=== PATIENT | male | born 1945 | race American Indian/Alaskan Native ===

== ENCOUNTER 2019-03-03 07:26 | Day surgery (SDC) | payer MEDICARE, OTHER ==
[~2019-03-03 07:26] MED LIST: ANCEF/STERILE WATER 2 GM/20 ML IV NR
[2019-03-03] MEDS ORDERED: SUBLIMAZE IV PRN (08:10)
[2019-03-03] MEDS ORDERED: ZOFRAN IV PRN (08:10)
--- NOTE | 2019-03-03 08:12 | Anesthesia Day of Surgery ---
Anesthesia Day of Surgery - Day of Surgery Patient Examined: Yes Patient H&P Reviewed: Yes Patient is NPO: Yes
--- NOTE | 2019-03-03 08:14 | Anesthesia Consultation ---
Anesthesia Consult and Med Hx Date of service: 03/03/19 - Airway Anesthetic Teeth Evaluation: Good, Dentures ROM Head & Neck: Adequate Mental/Hyoid Distance: Adequate Mallampati Class: Class II Intubation Access Assessment: Good - Pre-Operative Health Status ASA Pre-Surgery Classification: ASA2 Proposed Anesthetic Plan: General - Pulmonary Hx Smoking: Yes (STOPPED 1974) SOB: No Hx Sleep Apnea: No (MARJORIE PRE SCREEN LOW RISK.) - Cardiovascular System Hx Hypertension: Yes (NO MEDS AT PRESENT) Hx Coronary Artery Disease: No (Neg NST 11/2018; ECHO 2014) Hx Angina: (atypical chestpain, negative exercise stress test 08/2015) - Central Nervous System Hx Neuromuscular Disorder: (arthritis) Hx Back Pain: Yes - Other Systems Hx Cancer: No
[2019-03-03] MEDS ORDERED: SUBLIMAZE ONE (08:43)
[2019-03-03] MEDS ORDERED: XYLOCAINE MPF 2% ONE (08:43)
[2019-03-03] MEDS ORDERED: DIPRIVAN 10 MG/ML IV ONE (08:45)
[2019-03-03] MEDS ORDERED: NEURONTIN PO NR (09:00)
[2019-03-03] MEDS ORDERED: TYLENOL PO NR (09:00)
[2019-03-03] MEDS ORDERED: LACTATED RINGERS 1,000 ML IV SCH (09:00)
[2019-03-03] MEDS ORDERED: ZOFRAN ONE (10:43)
[2019-03-03] MEDS ORDERED: NACL 0.9% IR ONE (10:45)
[2019-03-03] MEDS ORDERED: ROBINUL ONE (10:52)
--- NOTE | 2019-03-03 11:05 | Short Stay Summary ---
Short Stay Documentation Date of service: 03/03/19 Narrative H&P: 73 yr old male with rt hydrocele on ultrasound & exam - History Past Medical History: hyperlipidemia Past Surgical History: hernia repair - Allergies and Medications Current Medications: Allergies No Known Allergies Allergy (Verified 01/28/14 18:34) Home Medications Medication Instructions Recorded Confirmed Last Taken Type Brimonidine/Timolol 0.2-0.5% 1 drops OP Q12H #30 bottle 05/16/16 03/03/19 03/03/19 Rx [Combigan 0.2-0.5%] Latanoprost 0.005% 1 drop OP QHS #30 bottle 05/16/16 03/03/19 03/03/19 Rx Aspirin EC [Aspirin Enteric Coated 81 mg PO QDAY 02/19/19 03/03/19 02/24/19 History TAB] Karina Root 550 mg PO DAILY 02/19/19 03/03/19 02/24/19 History Ibuprofen [Motrin] 800 mg PO Q8HR PRN 02/19/19 03/03/19 02/24/19 History Ranitidine HCl [Zantac] 150 mg PO PRN PRN 02/19/19 03/03/19 03/01/19 History Tamsulosin [Flomax] 0.4 mg PO QDAY 02/19/19 03/03/19 03/02/19 History Turm/Ging/Arun/Yuc/Tashi/Lawrence/Hor 1 each PO DAILY 02/19/19 03/03/19 02/24/19 History [Tumersaid Tablet] Active Medications Acetaminophen (Tylenol) 650 mg PO PREOP NR Stop: 03/03/19 20:00 Last Admin: 03/03/19 09:06 Dose: 325 mg Documented by: Cefazolin Sodium (Ancef/Sterile Water 2 Gm/20 Ml) 2 gm IV PREOP NR Stop: 03/03/19 23:59 Celecoxib (Celebrex) 200 mg PO PREOP NR Stop: 03/03/19 20:00 Last Admin: 03/03/19 09:06 Dose: 200 mg Documented by: Fentanyl (Sublimaze) 50 mcg IV Q5MIN PRN PRN Reason: Pain , Severe (7-10) Stop: 03/03/19 20:00 Gabapentin (Neurontin) 300 mg PO PREOP NR Stop: 03/03/19 20:00 Last Admin: 03/03/19 09:06 Dose: 300 mg Documented by: Lactated Ringer's (Lactated Ringers) 1,000 mls @ 125 mls/hr IV DIRECT JERAMIE Last Admin: 03/03/19 09:05 Dose: 125 mls/hr Documented by: Ondansetron HCl (Zofran) 4 mg IV ONCE PRN PRN Reason: Nausea And Vomiting Stop: 03/03/19 20:00 - Physical exam General appearance: no acute distress, well-nourished Integumentary: no rash, no growths HEENT: Atraumatic, PERRLA, EOMI Lungs: Clear to auscultation, Normal air movement Breasts: normal Heart: Regular rate, No murmurs Gastrointestinal: normal Male Genitourinary: scrotal edema Rectal Exam: deferred Extremities: no ischemia Neurological: Normal gait - Brief post op/procedure progress note Date of procedure: 03/03/19 Pre-op diagnosis: rt hydrocelectomy Post-op diagnosis: other (bilat hydrocele, redundent scrotal skin) Procedure: bilat hydrocelectomy, scrotaplatsty with chi drain Anesthesia: VIRGEN Surgeon: GRACE RANGEL Estimated blood loss: minimal Pathology: list (sac & skin) Specimen disposition: to lab Condition: stable - Hospital course Hospital course: norco & ultram on chart - Disposition Condition at discharge: Stable Disposition: DC-01 TO HOME OR SELFCARE Short Stay Discharge Plan Follow up with: GIGI MEDINA MD [Primary Care Provider] - 7 Days
[2019-03-03] MEDS ORDERED: DILAUDID ONE (11:09)
[2019-03-03] MEDS ORDERED: NORMODYNE IV ONE ×2 (11:22→11:30)
--- NOTE | 2019-03-03 13:34 | Operative Report ---
PREOPERATIVE DIAGNOSIS: Right hydrocele. POSTOPERATIVE DIAGNOSES: Right hydrocele, bilateral hydroceles, redundant scrotal skin. PROCEDURE: Bilateral hydrocelectomy, scrotoplasty with Augusta drain and mummy wrap. SURGEON: Shaheen Kovacs MD ANESTHESIA: General. ESTIMATED BLOOD LOSS: Minimal. FLUIDS: Crystalloid. COMPLICATIONS: No complications. INDICATIONS: This 73-year-old gentleman seen in the office with right scrotal swelling, right greater than left. Ultrasound revealed primarily right hydrocele. Discussed options with the patient, who agreed to proceed with surgical intervention. Risks, benefits, and complications were explained. The patient in the preop area noted that he is having some swelling on the left side as well and we discussed possible exploring both sides. DESCRIPTION OF PROCEDURE: The patient was taken to the operative suite, placed in a supine position. After adequate general anesthesia, he was prepped and draped in a sterile fashion. On exam, the patient did have redundant scrotum, baseball size hydrocele on the right and some fluid on the left. Scrotal skin was marked. A wedge section of the scrotal skin was excised and sent for routine pathologic evaluation. Right hydrocele could be appreciated. A small incision was made. Serosanguineous fluid was extracted from the right side. The sac was excised and sent for routine pathologic evaluation. A whipstitch was used using 2-0 chromic in a running fashion around the remnant tunica vaginalis. Appendix testis was cauterized. Testicle appeared viable. I could see fluid in the left hemiscrotum, made a small incision again and fair amount of serosanguineous fluid could be extracted. Hydrocele sac was removed and again sent for routine pathologic evaluation. Both testicles were viable. 0.5 inch Augusta drain was brought out through a separate stab incision in the scrotum and placed in both compartments. 2-0 chromic running stitch and the dartos layer was performed incorporating the septum into the stitch. The skin was closed with 2-0 chromic in interrupted fashion. The drain was secured with 2-0 chromic in interrupted fashion. Xin was wrapped around the base of the penis and the scrotum to minimize swelling and tape. The patient was extubated and taken to recovery room in stable condition. He will go home on Virax and Unidym. [facility]# [id number] ALEX/KRYS
[2019-03-03 15:24] VITALS: BP 155/86
== END 2019-03-03 13:15 | disposition home or self-care (01) ==
LOC: OR 07:26
PROVIDERS: ATTEND Urology
DX: N43.2 Other hydrocele (principal); N50.89 Other specified disorders of the male genital organs; H40.9 Unspecified glaucoma; I25.118 Atherosclerotic heart disease of native coronary artery with other forms of angina pectoris; E78.00 Pure hypercholesterolemia, unspecified; I10 Essential (primary) hypertension; K21.9 Gastro-esophageal reflux disease without esophagitis; M19.90 Unspecified osteoarthritis, unspecified site; Z79.899 Other long term (current) drug therapy; Z79.82 Long term (current) use of aspirin; Z87.891 Personal history of nicotine dependence; Z87.440 Personal history of urinary (tract) infections; Z98.49 Cataract extraction status, unspecified eye; Z98.890 Other specified postprocedural states
CPT/HCPCS: 55041; 55175; 88302; 88304; A4217; J0690; J1170; J2405; J2704; J3010; J7120; 88305

== ENCOUNTER 2019-03-09 13:04 | Inpatient (IN) | payer MEDICARE, OTHER ==
--- NOTE | 2019-03-09 13:48 | Emergency Department Report ---
Blank Doc - Documentation Documentation: pt presents for right flank pain that began a few day ago pt states he has fluid drained fluid off his testicle on 03/03, Dr. gibson no N/V/D no fever no urinary sx
[2019-03-09 14:35] LABS: Basophils % (Auto) 0.5 % (0.0-1.8); Eosinophils # (Auto) 0.1 K/mm3 (0.0-0.4); Eosinophils % (Auto) 0.8 % (0.0-4.3); Hematocrit 34.7 % (35.5-45.6); Lymphocytes # (Auto) 0.7 K/mm3 (1.2-5.4); Lymphocytes % (Auto) 10.1 % (13.4-35.0); Mean Corpuscular HGB Conc 35 % (32-34); Mean Corpuscular Volume 85 fl (84-94); Monocytes # (Auto) 0.9 K/mm3 (0.0-0.8); Monocytes % (Auto) 12.4 % (0.0-7.3); Platelet Count 206 K/mm3 (140-440); Red Blood Count 4.11 M/mm3 (3.65-5.03); Red Cell Distribution Width 16.5 % (13.2-15.2)
[2019-03-09 14:54] LABS: Bilirubin,Urine NEG (Negative); Blood,Urine MOD (Negative); Color,Urine Yellow (Yellow); Mucus,Urine FEW /HPF; Protein,Urine <15 mg/dL mg/dL (Negative); Urobilinogen,Urine < 2.0 mg/dL (<2.0)
[2019-03-09 14:58] LABS: Albumin 3.4 g/dL (3.9-5); BUN/Creatinine Ratio 6; Blood Urea Nitrogen 73 mg/dL (9-20); Calcium 8.8 mg/dL (8.4-10.2); Hemolysis Index 2
[2019-03-09 15:01] LABS: Alanine Aminotransferase < 5 units/L (7-56)
[2019-03-09] MEDS ORDERED: NACL 0.9% 1000 ML 1,000 ML IV ONE ×2 (16:16→19:52)
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
--- NOTE | 2019-03-09 19:28 | Cat Scan Report ---
PROCEDURE: CT ABDOMEN PELVIS WO CON HISTORY: right flank pain, hydrocele surgery on 03/03, FINDINGS: Unenhanced CT of the abdomen and pelvis was performed. The heart is normal in size. There i s a is lingular linear scar versus atelectasis. ABDOMEN: No suspect focal hepatic lesion is seen. The spleen is normal in size. The adrenal glands and pancrea s are within normal limits. The gallbladder is unremarkable. There is moderate bilateral hydroureteronephrosis. No right-sided stone is seen. There is a stone in the left mid lumbar ureter, axial image 91 sagittal image 77, approximately 0.6 cm. This stone does n ot appear to be obstructing as the left ureter inferior to this stone remains dilated. There are bilateral renal cysts. There is aortic atherosclerotic change without aneurysmal dilation of the aorta. There is no small or large bowel obstruction. Pelvis: There is a normal appendix. There is no evidence of diverticulitis. The prostate is enlarged measuring 4.4 x 6.3 x 6.0 cm for a calculated volume of 86 cc. This is likel y the underlying cause of the patient's bilateral hydroureteronephrosis. The urinary bladder is very distended, likely due to bladder outlet obstruction from prostatic hypertrophy. No fracture is seen in the lumbar spine. There are vacuum degenerative changes at L3-L4 and L4-L5. IMPRESSION: ABDOMEN: Moderate bilateral hydroureteronephrosis 0.6 cm stone in left mid lumbar ureter Pelvis: Enlarged prostate with distended urinary bladder. The prostatic hypertrophy is likely underly ing cause of the patient's bilateral hydroureteronephrosis This document is electronically signed by Greg Smith MD., Mar 09 2019 07:26:32 PM ET
--- NOTE | 2019-03-09 19:36 | Event Note ---
Date of service: 03/09/19 Face to Face: For this encounter I have reviewed the PA/MEDICAL DOCTOR documentation, treatment plan, medical decision making, and I had face to face time with this patient.
--- NOTE | 2019-03-09 20:49 | History and Physical Report ---
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 Severity was 5-7/10. Nonradiating. No known aggravating or relieving factors. Had no nausea or vomiting. Onset was after commencing hydrocodone given or post op pain. pain worsened for which he had to go to the ED at [facility]. Blood chemistry showed a Cr level of 2.8 with BUN of 19. Base line creatinine was 2.1 as of 04/2016. He was discharged with a diagnosis of constipation and placed on stool softners. He followed up with me on the office on 03/06/19 and was given a referral to follow up with his Equipment Engineer. His right sided abdominal pain continue with decreased urine output for which he presented to the ED at [facility] today 03/09/19. Blood chemistry showed a cratinine level of 12.9 and BUN of 73. CT abdomen and pelvis showed jazz hydroureteronephrosis with a enlarged prostate and left mid non obstructing 0.6 cm urteric stone. Patient denies any fever, N/V, chest pain, or shortness of breath. Denies any hematuria. Past History Past Medical History: renal failure, other (GERD, IBS with constipation) Past Surgical History: Other (hydrocelectomy) Social history: denies: smoking, alcohol abuse, prescription drug abuse Family history: no significant family history Medications and Allergies Allergies Allergy/AdvReac Type Severity Reaction Status Date / Time No Known Allergies Allergy Verified 03/09/19 13:49 Home Medications Medication Instructions Recorded Confirmed Last Taken Type Brimonidine/Timolol 0.2-0.5% 1 drops OP Q12H #30 bottle 05/16/16 03/09/19 03/03/19 Rx [Combigan 0.2-0.5%] Latanoprost 0.005% 1 drop OP QHS #30 bottle 05/16/16 03/09/19 03/03/19 Rx Aspirin EC [Aspirin Enteric Coated 81 mg PO QDAY 02/19/19 03/09/1919 History TAB] Karina Root 550 mg PO DAILY 02/19/19 03/09/19 02/24/19 History Ibuprofen [Motrin] 800 mg PO Q8HR PRN 02/19/19 03/03/19 02/24/19 History Ranitidine HCl [Zantac] 150 mg PO PRN PRN 02/19/19 03/09/19 03/01/19 History Tamsulosin [Flomax] 0.4 mg PO QDAY 02/19/19 03/09/19 03/02/19 History Turm/Ging/Arun/Yuc/Tashi/Lawrence/Hor 1 each PO DAILY 02/19/19 03/09/19 02/24/19 History [Tumersaid Tablet] Active Meds: Active Medications Sodium Chloride (Nacl 0.9% 1000 Ml) 1,000 mls @ 999 mls/hr IV BOLUS ONE Stop: 03/09/19 20:52 Review of systems Constitutional: Well Nourished and Well developed. Head: NC/ AT Eyes: Denies any visual impairments. No discharge from the eyes Nose: Denies any rhinorrhea or epistaxis Throats: Denies any post nasal drainage. Ears: Denies any hearing deficits Cardiovascular system: Denies any chest pain, shortness of breath, orthopnea, paroxysmal nocturnal dyspnea, or palpitation. Respiratory system: Denies any cough, difficulty breathing, wheezing, pleuritic chest pain, Gastrointestinal system: Has abdominal pain, no nausea vomiting, hematemesis or melena. Neurological system: Denies any headache, slurred speech, facial droop, lateralizing weakness Genitalia system: Denies any dysuria, urinary frequency or urgency, urethral discharge Skin: No rashes, hyperpigmented spots. Hematological: Denies any cervical tenderness hemorrhages or petechia. Immunological: Denies any multiple septic spots, Lymphatic: Denies any generalized lymphadenopathy. Endocrine: Denies any polyuria, polydipsia, polyphagia. No heat or cold intolerance. Musculoskeletal system: No joint pain or swelling. Psych: No visual, tactile, auditory or hallucination Exam - Physical Exam Narrative exam: Constitutional: Well-nourished well-developed. In no distress Head: Normocephalic atraumatic Eyes: Pupils are equal round and reactive to light Nose: No enlarged turbinates, no septal deviation. Mouth: Moist mucous membranes. Neck: Supple no thyromegaly. No bruit. No JVD Heart: Regular rate and rhythm, S1-S2 normal. No rubs murmurs or gallop Lungs: Clear to auscultation bilaterally. no rales or rhonchi Abdomen: Soft, nontender. Bowel sound are present. Extremities: No edema, no cyanosis, no clubbing. Neuro: Alert oriented Oriented x3. No focal sensory or motor deficit. Skin: No rashes or hyperpigmented spots Musculoskeletal system: No joint pain or swelling Hematological: No petechia or subcutanous hemorrhages. Immunological: No multiple septic spots on the skin AMELIA: Healing scrotal incision with drain in place. Lymphatic: No generalized lymphadenopathy Psychiatry: Euthymic. Calm. - Constitutional Vitals: Temp Pulse Resp BP Pulse Ox 98.2 F 83 18 151/75 98 03/09/19 13:48 03/09/19 13:48 03/09/19 13:48 03/09/19 13:48 03/09/19 13:48 Results - Labs CBC & Chem 7: 03/10/19 06:21 03/09/19 14:00 Labs: Abnormal lab results 03/09/19 03/09/19 03/09/19 Range/Units 14:00 14:00 14:13 Hct 34.7 L (35.5-45.6) % MCHC 35 H (32-34) % RDW 16.5 H (13.2-15.2) % Lymph % (Auto) 10.1 L (13.4-35.0) % [place] % (Auto) 12.4 H (0.0-7.3) % Lymph # 0.7 L (1.2-5.4) K/mm3 [place] # 0.9 H (0.0-0.8) K/mm3 Seg Neutrophils % 76.2 H (40.0-70.0) % Sodium 129 L (137-145) mmol/L Chloride 89.8 L (98-107) mmol/L Carbon Dioxide 20 L (22-30) mmol/L BUN 73 H (9-20) mg/dL Creatinine 12.9 H (0.8-1.5) mg/dL Lactic Acid (0.7-2.0) mmol/L ALT < 5 L (7-56) units/L Albumin 3.4 L (3.9-5) g/dL Lipase 67 H (13-60) units/L Urine WBC (Auto) 8.0 H (0.0-6.0) /HPF 03/09/19 Range/Units 16:30 Hct (35.5-45.6) % MCHC (32-34) % RDW (13.2-15.2) % Lymph % (Auto) (13.4-35.0) % [place] % (Auto) (0.0-7.3) % Lymph # (1.2-5.4) K/mm3 [place] # (0.0-0.8) K/mm3 Seg Neutrophils % (40.0-70.0) % Sodium (137-145) mmol/L Chloride (98-107) mmol/L Carbon Dioxide (22-30) mmol/L BUN (9-20) mg/dL Creatinine (0.8-1.5) mg/dL Lactic Acid 0.60 L (0.7-2.0) mmol/L ALT (7-56) units/L Albumin (3.9-5) g/dL Lipase (13-60) units/L Urine WBC (Auto) (0.0-6.0) /HPF Assessment and Plan Patient is a 73 y/o male who hanson a history of chronic renal failure, BPH, 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 Severity was 5-7/10. Nonradiating. No known aggravating or relieving factors. Had no nausea or vomiting. Onset was after commencing hydrocodone given or post op pain. pain worsened for which he had to go to the ED at [facility]. Blood chemistry showed a Cr level of 2.8 with BUN of 19. Base line creatinine was 2.1 as of 04/2016. He was discharged with a diagnosis of constipation and placed on stool softners. He followed up with me on the office on 03/06/19 and was given a re ferral to follow up with his Equipment Engineer. His right sided abdominal pain continue with decreased urine output for which he presented to the ED at [facility] today 03/09/19. Blood chemistry showed a cratinine level of 12.9 and BUN of 73. CT abdomen and pelvis showed jazz hydroureteronephrosis with a enlarged prostate and left mid non obstructing 0.6 cm urteric stone. Patient denies any fever, N/V, chest pain, or shortness of breath. Denies any hematuria. - Patient Problems (1) Bilateral hydronephrosis Onset Date: ~03/09/19 Current Visit: Yes Status: Acute Plan to address problem: This is most likely secondary to BPH despite being on Flomax We'll place an indwelling Rosado catheter with continuous drainage to a urine bag Obtain a urology consult (2) Left ureteral stone Onset Date: ~03/09/19 Current Visit: Yes Status: Acute Plan to address problem: This is nonobstructing. Urological consult to be obtained (3) Acute on chronic renal failure Onset Date: ~03/09/19 Current Visit: No Status: Acute Plan to address problem: I anticipate an improvement in BUN/creatinine with continuous drainage. We'll consult patient's shift supervisor Brandon BUN/creatinine (4) Bilateral hydrocele Onset Date: ~03/09/19 Current Visit: Yes Status: Acute Plan to address problem: Status post hydrocelectomy on 03/03/2016 (5) UTI (urinary tract infection) Onset Date: ~03/09/19 Current Visit: No Status: Acute Plan to address problem: Obtain urine culture. Commence pt on antibiotic with renal dosing (6) BPH with obstruction/lower urinary tract symptoms Onset Date: ~03/09/19 Current Visit: Yes Status: Acute Plan to address problem: Continue with Flomax. I adjust the dose to 0.8 mg daily Urologist to follow May require TURP I suspicious has had recurrent urinary obstruction (7) DVT prophylaxis Onset Date: ~03/09/19 Current Visit: Yes Status: Acute Plan to address problem: With Lovenox and GI with Pepcid (8) Irritable bowel syndrome with constipation Onset Date: ~01/03/19 Current Visit: Yes Status: Acute
[2019-03-09] MEDS ORDERED: COMBIGAN 0.2-0.5% OS SCH (22:00)
[2019-03-09] MEDS ORDERED: LATANOPROST 0.005% OU SCH (22:00)
[2019-03-10] MEDS: COMBIGAN 0.2-0.5% OS SCH ×3 (00:03→22:43)
[2019-03-10] MEDS: LATANOPROST 0.005% OU SCH ×2 (00:03→22:42)
[2019-03-10 07:35] LABS: Hematocrit 31.7 % (35.5-45.6); Hemoglobin 10.8 gm/dl (11.8-15.2); Mean Corpuscular HGB Conc 34 % (32-34); Mean Corpuscular Volume 83 fl (84-94); Platelet Count 199 K/mm3 (140-440); Red Blood Count 3.83 M/mm3 (3.65-5.03); Red Cell Distribution Width 15.7 % (13.2-15.2)
[2019-03-10 07:52] LABS: Calcium 8.4 mg/dL (8.4-10.2)
--- NOTE | 2019-03-10 07:57 | Progress Note ---
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 Severity was 5-7/10. Nonradia ting. No known aggravating or relieving factors. Had no nausea or vomiting. Onset was after commencing hydrocodone given or post op pain. pain worsened for which he had to go to the ED at [facility]. Blood chemistry showed a Cr level of 2.8 with BUN of 19. Base line creatinine was 2.1 as of 04/2016. He was discharged with a diagnosis of constipation and placed on stool softners. He followed up with me on the office on 03/06/19 and was given a referral to follow up with his [employer]. His right sided abdominal pain continue with decreased urine output for which he presented to the ED at [facility] today 03/09/19. Blood chemistry showed a cratinine level of 12.9 and BUN of 73. CT abdomen and pelvis showed nadeem hydroureteronephrosis with a enlarged prostate and left mid non obstructing 0.6 cm urteric stone. Patient denies any fever, N/V, chest pain, or shortness of breath. Denies any hematuria. - Acute on chronic renal failure Secondry to obstructive uropahty Continue with indewelling Rosado with continous drainage. Avoid nephrotoxic substances Renal dosing of all meds Nephrology consulted - Urinary obstruction from BPH on Foleys catheter continue Flomax - Anemia will work up May be dilutional vs renal trend h/h May hold anticoagulation if persistent - Nadeem hyroureters and hydronephrosis From obstructive uropathy Urologyc consulted - HTN Commence pt on oral antihypertensive - Left ureteric stone measuring 0.6 cm Nonsobstructing Urology following - UTI Follow urine Cx Continue with Rocephin - H/o IBS with Constipation continue with Amitiza - DVT PPx with lovenox and Gi with pepcid - ACP: pt is full code Time spend : 30 mins - Patient Problems (1) Bilateral hydronephrosis Onset Date: ~03/09/19 Current Visit: Yes Status: Acute (2) Left ureteral stone Onset Date: ~03/09/19 Current Visit: Yes Status: Acute (3) Acute on chronic renal failure Onset Date: ~03/09/19 Current Visit: No Status: Acute (4) Bilateral hydrocele Onset Date: ~03/09/19 Current Visit: Yes Status: Acute (5) UTI (urinary tract infection) Onset Date: ~03/09/19 Current Visit: No Status: Acute (6) BPH with obstruction/lower urinary tract symptoms Onset Date: ~03/09/19 Current Visit: Yes Status: Acute (7) DVT prophylaxis Onset Date: ~03/09/19 Current Visit: Yes Status: Acute (8) Irritable bowel syndrome with constipation Onset Date: ~01/03/19 Current Visit: Yes Status: Acute Subjective Date of service: 03/10/19 Principal diagnosis: Acute on chronic renal failure, nadeem hyrnephrosis, UTI Interval history: no new complaints. Denies any fever or chest pain Objective - Exam Narrative Exam: Constitutional: Well-nourished well-developed. In no distress Head: Normocephalic atraumatic Eyes: Pupils are equal round and reactive to light Nose: No enlarged turbinates, no septal deviation. Mouth: Moist mucous membranes. Neck: Supple no thyromegaly. No bruit. No JVD Heart: Regular rate and rhythm, S1-S2 normal. No rubs murmurs or gallop Lungs: Clear to auscultation bilaterally. no rales or rhonchi Abdomen: Soft, nontender. Bowel sound are present. Extremities: No edema, no cyanosis, no clubbing. Neuro: Alert oriented Oriented x3. No focal sensory or motor deficit. Skin: No rashes or hyperpigmented spots Musculoskeletal system: No joint pain or swelling Hematological: No petechia or subcutanous hemorrhages. Immunological: No multiple septic spots on the skin AMELIA: Indwelling Foleys on continuos drainage. Healing scrotal incision with dr mckeon in place. Lymphatic: No generalized lymphadenopathy Psychiatry: Euthymic. Calm. - Constitutional Vitals: Vital Signs - 12hr 03/09/19 03/09/19 03/09/19 20:53 21:49 23:00 Temperature 98.4 F 97.8 F Pulse Rate 90 94 H Respiratory 20 20 20 Rate Blood Pressure 160/78 Blood Pressure 157/65 [Right] O2 Sat by Pulse 99 99 99 Oximetry 03/10/19 03:14 Temperature 98.5 F Pulse Rate 78 Respiratory 20 Rate Blood Pressure 165/75 Blood Pressure [Right] O2 Sat by Pulse 96 Oximetry - Labs CBC & Chem 7: 03/10/19 06:21 03/09/19 14:00 Labs: Abnormal lab results 03/09/19 03/09/19 03/09/19 Range/Units 14:00 14:00 14:13 Hgb (11.8-15.2) gm/dl Hct 34.7 L (35.5-45.6) % MCV (84-94) fl MCHC 35 H (32-34) % RDW 16.5 H (13.2-15.2) % Lymph % (Auto) 10.1 L (13.4-35.0) % [place] % (Auto) 12.4 H (0.0-7.3) % Lymph # 0.7 L (1.2-5.4) K/mm3 [place] # 0.9 H (0.0-0.8) K/mm3 Seg Neutrophils % 76.2 H (40.0-70.0) % Sodium 129 L (137-145) mmol/L Chloride 89.8 L (98-107) mmol/L Carbon Dioxide 20 L (22-30) mmol/L BUN 73 H (9-20) mg/dL Creatinine 12.9 H (0.8-1.5) mg/dL Lactic Acid (0.7-2.0) mmol/L ALT < 5 L (7-56) units/L Albumin 3.4 L (3.9-5) g/dL Lipase 67 H (13-60) units/L Urine WBC (Auto) 8.0 H (0.0-6.0) /HPF 03/09/19 03/10/19 Range/Units 16:30 06:21 Hgb 10.8 L (11.8-15.2) gm/dl Hct 31.7 L (35.5-45.6) % MCV 83 L (84-94) fl MCHC (32-34) % RDW 15.7 H (13.2-15.2) % Lymph % (Auto) (13.4-35.0) % [place] % (Auto) (0.0-7.3) % Lymph # (1.2-5.4) K/mm3 [place] # (0.0-0.8) K/mm3 Seg Neutrophils % (40.0-70.0) % Sodium (137-145) mmol/L Chloride (98-107) mmol/L Carbon Dioxide (22-30) mmol/L BUN (9-20) mg/dL Creatinine (0.8-1.5) mg/dL Lactic Acid 0.60 L (0.7-2.0) mmol/L ALT (7-56) units/L Albumin (3.9-5) g/dL Lipase (13-60) units/L Urine WBC (Auto) (0.0-6.0) /HPF
[2019-03-10 08:24] LABS: Anisocytosis 1+; Total Cells Counted 100
[2019-03-10 08:25] LABS: Platelet Estimate Consistent w Auto
[2019-03-10] MEDS: NORVASC PO SCH (09:36)
[2019-03-10] MEDS: FLOMAX PO SCH (09:36)
[2019-03-10] MEDS: LOVENOX SUB-Q SCH (09:37)
[2019-03-10] MEDS: LOPRESSOR PO SCH ×2 (09:37→22:42)
[2019-03-10] MEDS: HALFPRIN EC PO SCH (09:37)
[2019-03-10] MEDS: D5/0.45NS 1,000 ML IV SCH ×2 (09:38→22:45)
[2019-03-10] MEDS: ROCEPHIN/NS 1 GM/50 ML 1 GM/50 ML BAG IV SCH (09:45)
--- NOTE | 2019-03-10 09:50 | Progress Note ---
Assessment and Plan creat imporving dictated LEFT ureteral stone drain to be removed poss stent Subjective Date of service: 03/10/19 Principal diagnosis: Acute on chronic renal failure, jazz hyrnephrosis, UTI Objective - Constitutional Vitals: Vital Signs - 12hr 03/09/19 03/10/19 03/10/19 23:00 03:14 07:32 Temperature 97.8 F 98.5 F 97.9 F Pulse Rate 94 H 78 84 Respiratory 20 20 20 Rate Blood Pressure 160/78 165/75 136/75 O2 Sat by Pulse 99 96 98 Oximetry 03/10/19 03/10/19 09:36 09:37 Temperature Pulse Rate 84 84 Respiratory Rate Blood Pressure 136/75 139/75 O2 Sat by Pulse Oximetry General appearance: Present: no acute distress - Respiratory Respiratory effort: normal - Gastrointestinal General gastrointestinal: Present: soft, non-tender - Labs CBC & Chem 7: 03/10/19 06:21 03/10/19 06:21 Labs: Abnormal lab results 03/09/19 03/09/19 03/09/19 Range/Units 14:00 14:00 14:13 Hgb (11.8-15.2) gm/dl Hct 34.7 L (35.5-45.6) % MCV (84-94) fl MCHC 35 H (32-34) % RDW 16.5 H (13.2-15.2) % Lymph % (Auto) 10.1 L (13.4-35.0) % [place] % (Auto) 12.4 H (0.0-7.3) % Lymph # 0.7 L (1.2-5.4) K/mm3 Lee # 0.9 H (0.0-0.8) K/mm3 Seg Neutrophils % 76.2 H (40.0-70.0) % Monocytes % (Manual) (0.0-7.3) % Lymphocytes # (Manual) (1.2-5.4) K/mm3 Sodium 129 L (137-145) mmol/L Chloride 89.8 L (98-107) mmol/L Carbon Dioxide 20 L (22-30) mmol/L BUN 73 H (9-20) mg/dL Creatinine 12.9 H (0.8-1.5) mg/dL Glucose (75-100) mg/dL Lactic Acid (0.7-2.0) mmol/L Phosphorus (2.5-4.5) mg/dL Magnesium (1.7-2.3) mg/dL ALT < 5 L (7-56) units/L Albumin 3.4 L (3.9-5) g/dL Lipase 67 H (13-60) units/L Urine WBC (Auto) 8.0 H (0.0-6.0) /HPF 03/09/19 03/10/19 03/10/19 Range/Units 16:30 06:21 06:21 Hgb 10.8 L (11.8-15.2) gm/dl Hct 31.7 L (35.5-45.6) % MCV 83 L (84-94) fl MCHC (32-34) % RDW 15.7 H (13.2-15.2) % Lymph % (Auto) (13.4-35.0) % [place] % (Auto) (0.0-7.3) % Lymph # (1.2-5.4) K/mm3 [place] # (0.0-0.8) K/mm3 Seg Neutrophils % (40.0-70.0) % Monocytes % (Manual) 13.0 H (0.0-7.3) % Lymphocytes # (Manual) 1.0 L (1.2-5.4) K/mm3 Sodium (137-145) mmol/L Chloride (98-107) mmol/L Carbon Dioxide (22-30) mmol/L BUN (9-20) mg/dL Creatinine (0.8-1.5) mg/dL Glucose (75-100) mg/dL Lactic Acid 0.60 L (0.7-2.0) mmol/L Phosphorus 4.60 H (2.5-4.5) mg/dL Magnesium 2.60 H (1.7-2.3) mg/dL ALT (7-56) units/L Albumin (3.9-5) g/dL Lipase (13-60) units/L Urine WBC (Auto) (0.0-6.0) /HPF 03/10/19 Range/Units 06:21 Hgb (11.8-15.2) gm/dl Hct (35.5-45.6) % MCV (84-94) fl MCHC (32-34) % RDW (13.2-15.2) % Lymph % (Auto) (13.4-35.0) % [place] % (Auto) (0.0-7.3) % Lymph # (1.2-5.4) K/mm3 [place] # (0.0-0.8) K/mm3 Seg Neutrophils % (40.0-70.0) % Monocytes % (Manual) (0.0-7.3) % Lymphocytes # (Manual) (1.2-5.4) K/mm3 Sodium (137-145) mmol/L Chloride (98-107) mmol/L Carbon Dioxide 21 L (22-30) mmol/L BUN 52 H (9-20) mg/dL Creatinine 6.7 H (0.8-1.5) mg/dL Glucose 114 H (75-100) mg/dL Lactic Acid (0.7-2.0) mmol/L Phosphorus (2.5-4.5) mg/dL Magnesium (1.7-2.3) mg/dL ALT (7-56) units/L Albumin (3.9-5) g/dL Lipase (13-60) units/L Urine WBC (Auto) (0.0-6.0) /HPF Medications & Allergies - Medications Allergies/Adverse Reactions: Allergies No Known Allergies Allergy (Verified 03/09/19 13:49) Home Medications: Home Medications Medication Instructions Recorded Confirmed Last Taken Type Brimonidine/Timolol 0.2-0.5% 1 drops OP Q12H #30 bottle 05/16/16 03/09/19 03/03/19 Rx [Combigan 0.2-0.5%] Latanoprost 0.005% 1 drop OP QHS #30 bottle 05/16/16 03/09/19 03/03/19 Rx Aspirin EC [Aspirin Enteric Coated 81 mg PO QDAY 02/19/19 03/09/19 02/24/19 History TAB] Karina Root 550 mg PO DAILY 02/19/19 03/09/19 02/24/19 History Ibuprofen [Motrin] 800 mg PO Q8HR PRN 02/19/19 03/03/19 02/24/19 History Ranitidine HCl [Zantac] 150 mg PO PRN PRN 02/19/19 03/09/1903/01/19 History Tamsulosin [Flomax] 0.4 mg PO QDAY 02/19/19 03/09/19 03/02/19 History Turm/Ging/Arun/Yuc/Tashi/[place]/Hor 1 each PO DAILY 02/19/19 03/09/19 02/24/19 History [Tumersaid Tablet] Active Medications: Generic Name Dose Route Start Last Admin Trade Name Freq PRN Reason Stop Dose Admin Amlodipine Besylate 10 mg 03/10/19 10:00 03/10/19 09:36 Norvasc PO 10 mg QDAY JERAMIE Administration Aspirin 81 mg 03/10/19 10:00 03/10/19 09:37 Halfprin Ec PO 81 mg QDAY JERAMIE Administration Brimonidine/Timolol 1 drops 03/09/19 23:59 03/10/19 00:03 Combigan 0.2-0.5% OS 1 drops Q12H JERAMIE Administration Enoxaparin Sodium 30 mg 03/10/19 10:00 03/10/19 09:37 Lovenox SUB-Q 30 mg QDAY JERAMIE Administration Famotidine 10 mg 03/09/19 21:26 Pepcid PO BID PRN Indigestion Ceftriaxone Sodium 1 gm in 50 mls @ 100 mls/hr 03/10/19 10:00 03/10/19 09:45 Rocephin/Ns 1 Gm/50 Ml IV 100 mls/hr Q24HR JERAMIE Administration Protocol Dextrose/Sodium Chloride 1,000 mls @ 100 mls/hr 03/09/19 22:00 03/10/19 09:38 D5/0.45ns IV 100 mls/hr DIRECT JERAMIE Administration Latanoprost 1 drops 03/09/19 23:59 03/10/19 00:03 Latanoprost 0.005% OU 1 drops QHS JERAMIE Administration Metoprolol Tartrate 50 mg 03/10/19 10:00 03/10/19 09:37 Lopressor PO 50 mg BID JERAMIE Administration Tamsulosin HCl 0.8 mg 03/10/19 10:00 03/10/19 09:36 Flomax PO 0.8 mg QDAY JERAMIE Administration
--- NOTE | 2019-03-10 10:04 | Consultation ---
History of Present Illness - History of Present Illness 73 year old with medical history signficant for CKD stage 4, ? HTN, BPH , Hyd rocele s/p recent hydrocele removal complicated by urinary retention. He reports decreased urine output. He denies any shortness of breath. he denies any fever. per chart procedure was done on 03/03 , he also had flank pain and constipation and was seen at [facility] and labs with creatinine of 2.8 , previous creatinine was 2.1 . He denies any nausea ,vomitting or diarrheoa. A CT abdomen on arrival showed bilateral hydroureteronephrosis and enlarged prostate with stone 0.6cm in left distal ureter. Past History Past Medical History: renal failure, other (GERD, IBS with constipation) Past Surgical History: Other (hydrocelectomy) Social history: denies: smoking, alcohol abuse, prescription drug abuse Family history: no significant family history Medications and Allergies Allergies Allergy/AdvReac Type Severity Reaction Status Date / Time No Known Allergies Allergy Verified 03/09/19 13:49 Home Medications Medication Instructions Recorded Confirmed Last Taken Type Brimonidine/Timolol 0.2-0.5% 1 drops OP Q12H #30 bottle 05/16/16 03/09/19 03/03/19 Rx [Combigan 0.2-0.5%] Latanoprost 0.005% 1 drop OP QHS #30 bottle 05/16/16 03/09/19 03/03/19 Rx Aspirin EC [Aspirin Enteric Coated 81 mg PO QDAY 02/19/19 03/09/19 02/24/19 History TAB] Karina Root 550 mg PO DAILY 02/19/19 03/09/19 02/24/19 History Ibuprofen [Motrin] 800 mg PO Q8HR PRN 02/19/19 03/03/19 02/24/19 History Ranitidine HCl [Zantac] 150 mg PO PRN PRN 02/19/19 03/09/19 03/01/19 History Tamsulosin [Flomax] 0.4 mg PO QDAY 02/19/19 03/09/19 03/02/19 History Turm/Ging/Arun/Yuc/Tashi/Lawrence/Hor 1 each PO DAILY 02/19/19 03/09/19 02/24/19 History [Tumersaid Tablet] Active Meds: Active Medications Amlodipine Besylate (Norvasc) 10 mg PO QDAY [facility] Last Admin: 03/10/19 09:36 Dose: 10 mg Documented by: Aspirin (Halfprin Ec) 81 mg PO QDAY [facility] Last Admin: 03/10/19 09:37 Dose: 81 mg Documented by: Brimonidine/Timolol (Combigan 0.2-0.5%) 1 drops OS Q12H [facility] Last Admin: 03/10/19 00:03 Dose: 1 drops Documented by: Enoxaparin Sodium (Lovenox) 30 mg SUB-Q QDAY [facility] Last Admin: 03/10/19 09:37 Dose: 30 mg Documented by: Famotidine (Pepcid) 10 mg PO BID PRN PRN Reason: Indigestion Ceftriaxone Sodium (Rocephin/Ns 1 Gm/50 Ml) 1 gm in 50 mls @ 100 mls/hr IV Q24HR [facility]; Protocol Last Admin: 03/10/19 09:45 Dose: 100 mls/hr Documented by: Dextrose/Sodium Chloride (D5/0.45ns) 1,000 mls @ 100 mls/hr IV DIRECT [facility] Last Admin: 03/10/19 09:38 Dose: 100 mls/hr Documented by: Latanoprost (Latanoprost 0.005%) 1 drops OU QHS [facility] Last Admin: 03/10/19 00:03 Dose: 1 drops Documented by: Metoprolol Tartrate (Lopressor) 50 mg PO BID [facility] Last Admin: 03/10/19 09:37 Dose: 50 mg Documented by: Tamsulosin HCl (Flomax) 0.8 mg PO QDAY [facility] Last Admin: 03/10/19 09:36 Dose: 0.8 mg Documented by: Review of Systems Constitutional: no weight loss, no weight gain, no fever, no chills, no sweats Ears, nose, mouth and throat: no ear pain, no ear discharge Cardiovascular: no chest pain, no orthopnea, no palpitations, no rapid/irregular heart beat, no edema, no shortness of breath Respiratory: no cough, no hemoptysis, no shortness of breath, no congestion Genitourinary Male: no dysuria, no hematuria Rectal: no pain, no incontinence Musculoskeletal: no neck stiffness, no neck pain Integumentary: no deferred, no rash Neurological: no head injury, no transient paralysis Psychiatric: no anxiety, no memory loss Endocrine: no cold intolerance, no heat intolerance Hematologic/Lymphatic: no easy bruising, no easy bleeding Exam - Vital Signs Vital signs: Vital Signs Temp Pulse Resp BP Pulse Ox 98.2 F 83 18 151/75 98 03/09/19 13:48 03/09/19 13:48 03/09/19 13:48 03/09/19 13:48 03/09/19 13:48 - General Appearance General appearance: well-developed, well-nourished EENT: ATNC, PERRL, mucous membranes moist Neck: Present: neck supple Respiratory: Clear to Ascultation Heart: regular, S1S2 Gastrointestinal: Present: normal, normoactive bowel sounds, other ( starkey in place draining clear urine ) Integumentary: no rash Neurologic: alert and oriented x3, CN 3-12 intact Musculoskeletal: Present: deferred Psychiatric: mood/affect appropriate Results - Lab Results 03/10/19 06:21 03/10/19 06:21 Most recent lab results Calcium 8.4 mg/dL (8.4-10.2) 03/10/19 06:21 Phosphorus 4.60 mg/dL (2.5-4.5) H 03/10/19 06:21 Magnesium 2.60 mg/dL (1.7-2.3) H 03/10/19 06:21 - Image Kidney/bladder ultrasound: other (I reviewed abdominal CT which showed bilateral hydroureteronephrosis, enlarged prostate with stone in left ureter. ) Assessment and Plan - Patient Problems (1) Acute on chronic renal failure Onset Date: ~03/09/19 Current Visit: No Status: Acute Plan to address problem: Acute on chronic renal failure - baseline creatinine : 2.1 in 2016 creatinine in 2019 was 2.8mg/dl per note - admitted with peak creatinine : 12mg/dl -current creatinine : 6.7mg/dl -currently on half normal saline -agree with hypotonic solution given postobstructive aetiology. increase to 125cc/hr. -reviewed abdominal CT - keep starkey catheter in place -appreciate urology evaluation. recheck RFP. (2) Acidosis Current Visit: Yes Status: Acute Plan to address problem: acidosis - add sodium bicarbonate tabs. (3) Urinary retention Current Visit: No Status: Acute Plan to address problem: urinary retention - bilateral hydroureteronephrosis - with severe BPH - keep starkey in place. - flomax 0.4mg daily. (4) Bilateral hydronephrosis Onset Date: ~03/09/19 Current Visit: Yes Status: Acute Plan to address problem: Bilateral hydroureteronephrosis - keep starkey in place -urology evaluation. (5) Hyperphosphatemia Current Visit: Yes Status: Acute Plan to address problem: hyperphosphatemia 2/2 renal failure - low phosphorus diet.
[2019-03-10 11:02] LABS: Iron 15 ug/dL (49-181); Total Iron Binding Capacity 205 mcg/dL (250-450)
[2019-03-10] MEDS: SODIUM BICARBONATE PO SCH ×2 (11:50→22:41)
--- NOTE | 2019-03-10 12:11 | Event Note ---
Date: 03/10/19 drain removed discussed options will add on later this week- cysto: possible stent, turp
[2019-03-10] MEDS: PEPCID PO PRN (17:20)
[2019-03-10 20:33] LABS: Calcium 8.5 mg/dL (8.4-10.2)
--- NOTE | 2019-03-11 01:05 | Consultation ---
HISTORY OF PRESENT ILLNESS: This is a 73-year-old gentleman status post hydrocelectomy. He still has a drain, right scrotum. He is not very pleasant. He appears to be somewhat angry, but he presented with urinary retention, large amount of residual bilateral hydronephrosis and he has a Rosado that is draining clear urine. There is a stone in the left mid ureter as well, which is 6 mm. PAST MEDICAL HISTORY: As mentioned above, he is recently post-scrotal surgery. PAST SURGICAL HISTORY: Hydrocelectomy. PAST MEDICAL HISTORY: Renal insufficiency, left ureteral stone. FAMILY HISTORY: Noncontributory. SOCIAL HISTORY: Noncontributory. REVIEW OF SYSTEMS: He has no flank pain. Urine is clear, but he has had a weakened flow since the hydrocelectomy. No urological procedures other than mentioned above. PHYSICAL EXAMINATION: GENERAL: He is awake. He is somewhat angry. He is in no distress. ABDOMEN: Soft, nondistended. GENITALIA: Small amount of scrotal edema, incision is healing. There is a drain in the hemiscrotum. IMPRESSION AND PLAN: Left ureteral stone, recent hydrocelectomy. Creatinine is almost 13, coming down with Rosado catheterization, IV fluids. Suspect he will need at least a stent placed on the left side. He is on Flomax. We will let Dr. Kovacs know on followup procedure either percutaneous nephrostomy or stent. His creatinine gets little improved. JOB# [id number] STACIA/KRYS
[2019-03-11] MEDS: COMBIGAN 0.2-0.5% OS SCH ×2 (01:31→13:19)
[2019-03-11] MEDS: D5/0.45NS 1,000 ML IV SCH ×3 (05:28→22:24)
[2019-03-11 06:08] LABS: Hemoglobin 10.8 gm/dl (11.8-15.2); Mean Corpuscular HGB Conc 34 % (32-34); Mean Corpuscular Volume 83 fl (84-94); Platelet Count 220 K/mm3 (140-440); Red Blood Count 3.85 M/mm3 (3.65-5.03); Red Cell Distribution Width 15.8 % (13.2-15.2)
[2019-03-11 07:59] LABS: Anisocytosis 1+; Basophils % (Manual) 0 % (0.0-1.8); Platelet Estimate Consistent w Auto; Total Cells Counted 100
[2019-03-11 08:00] LABS: Ovalocytes Few
--- NOTE | 2019-03-11 09:02 | Progress Note ---
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 Severity was 5-7/10. Nonradia ting. No known aggravating or relieving factors. Had no nausea or vomiting. Onset was after commencing hydrocodone given or post op pain. pain worsened for which he had to go to the ED at [facility]. Blood chemistry showed a Cr level of 2.8 with BUN of 19. Base line creatinine was 2.1 as of 04/2016. He was discharged with a diagnosis of constipation and placed on stool softners. He followed up with me on the office on 03/06/19 and was given a referral to follow up with his Family Nurse. His right sided abdominal pain continue with decreased urine output for which he presented to the ED at [facility] today 03/09/19. Blood chemistry showed a cratinine level of 12.9 and BUN of [address]. CT abdomen and pelvis showed nadeem hydroureteronephrosis with a enlarged prostate and left mid non obstructing 0.6 cm urteric stone. Patient denies any fever, N/V, chest pain, or shortness of breath. Denies any hematuria. Indewelling Rosado with continuous drainge inserted. 500 ml of urine drained immediately. Nephrology and Urology consulted - Acute on chronic renal failure Secondry to obstructive uropahty Continue with indewelling Rosado with continous drainage. Avoid nephrotoxic substances Renal dosing of all meds Nephrology consulted - Urinary obstruction from BPH Foleys catheter inserte and 500ml of urine drained immediatley on insertion continue Flomax - Anemia of Chronic disease Low iron and low TIBC trend H/H - Nadeem hyroureters and hydronephrosis From obstructive uropathy Urologyc consulted Plans TURP later in the week - HTN - controlled Continue on oral antihypertensive - Left ureteric stone measuring 0.6 cm Nonsobstructing Urology following. Plan stent placement - UTI Urine Cx showed no growth so far Continue with Rocephin - H/o IBS with Constipation continue with Amitiza - DVT PPx with lovenox and Gi with pepcid - ACP: pt is full code Time spend : 30 mins - Patient Problems (1) Bilateral hydronephrosis Onset Date: ~03/09/19 Current Visit: Yes Status: Acute (2) Left ureteral stone Onset Date: ~03/09/19 Current Visit: Yes Status: Acute (3) Acute on chronic renal failure Onset Date: ~03/09/19 Current Visit: No Status: Acute (4) Bilateral hydrocele Onset Date: ~03/09/19 Current Visit: Yes Status: Acute (5) UTI (urinary tract infection) Onset Date: ~03/09/19 Current Visit: No Status: Acute (6) BPH with obstruction/lower urinary tract symptoms Onset Date: ~03/09/19 Current Visit: Yes Status: Acute (7) DVT prophylaxis Onset Date: ~03/09/19 Current Visit: Yes Status: Acute (8) Irritable bowel syndrome with constipation Onset Date: ~01/03/19 Current Visit: Yes Status: Acute Subjective Date of service: 03/11/19 Principal diagnosis: Acute on chronic renal failure, nadeem hyrnephrosis, UTI Interval history: no new complaints.Abdominal pain resolved. Denies any fever or chest pain Objective - Exam Narrative Exam: Constitutional: Well-nourished well-developed. In no distress Head: Normocephalic atraumatic Eyes: Pupils are equal round and reactive to light Nose: No enlarged turbinates, no septal deviation. Mouth: Moist mucous membranes. Neck: Supple no thyromegaly. No bruit. No JVD Heart: Regular rate and rhythm, S1-S2 normal. No rubs murmurs or gallop Lungs: Clear to auscultation bilaterally. no rales or rhonchi Abdomen: Soft, nontender. Bowel sound are present. Extremities: No edema, no cyanosis, no clubbing. Neuro: Alert oriented Oriented x3. No focal sensory or motor deficit. Skin: No rashes or hyperpigmented spots Musculoskeletal system: No joint pain or swelling Hematological: No petechia or subcutanous hemorrhages. Immunological: No multiple septic spots on the skin AMELIA: Indwelling Foleys on continuos drainage. Healing scrotal incision with drain in place. Lymphatic: No generalized lymphadenopathy Psychiatry: Euthymic. Calm. - Constitutional Vitals: Vital Signs - 12hr 03/10/19 03/10/19 03/11/19 22:00 22:42 02:31 Temperature 99.1 F Pulse Rate 77 72 Respiratory 20 22 Rate Blood Pressure 126/60 123/61 Blood Pressure 123/61 [Right] O2 Sat by Pulse 96 Oximetry 03/11/19 03/11/19 03:44 08:25 Temperature 98.7 F Pulse Rate 70 72 Respiratory 20 Rate Blood Pressure 128/64 Blood Pressure [Right] O2 Sat by Pulse 97 Oximetry - Labs CBC & Chem 7: 03/11/19 05:30 03/10/19 19:47 Labs: Abnormal lab results 03/10/19 03/10/19 03/10/19 Range/Units 09:22 09:22 19:47 Hgb (11.8-15.2) gm/dl Hct (35.5-45.6) % MCV (84-94) fl RDW (13.2-15.2) % Monocytes % (Manual) (0.0-7.3) % Sodium 136 L (137-145) mmol/L BUN 33 H (9-20) mg/dL Creatinine 3.4 H (0.8-1.5) mg/dL Glucose 114 H (75-100) mg/dL Iron 15 L (49-181) ug/dL TIBC 205 L (250-450) mcg/dL Vitamin B12 > 2000 H (211-911) pg/mL 03/11/19 Range/Units 05:30 Hgb 10.8 L (11.8-15.2) gm/dl Hct 32.0 L (35.5-45.6) % MCV 83 L (84-94) fl RDW 15.8 H (13.2-15.2) % Monocytes % (Manual) 13.0 H (0.0-7.3) % Sodium (137-145) mmol/L BUN (9-20) mg/dL Creatinine (0.8-1.5) mg/dL Glucose (75-100) mg/dL Iron (49-181) ug/dL TIBC (250-450) mcg/dL Vitamin B12 (211-911) pg/mL
[2019-03-11] MEDS: ROCEPHIN/NS 1 GM/50 ML 1 GM/50 ML BAG IV SCH (09:38)
[2019-03-11] MEDS: SODIUM BICARBONATE PO SCH ×2 (09:40→22:14)
[2019-03-11] MEDS: LOVENOX SUB-Q SCH (09:41)
[2019-03-11] MEDS: HALFPRIN EC PO SCH (09:41)
[2019-03-11] MEDS: FLOMAX PO SCH (09:41)
[2019-03-11] MEDS: NORVASC PO SCH (09:42)
[2019-03-11] MEDS: LOPRESSOR PO SCH ×2 (09:43→22:15)
--- NOTE | 2019-03-11 10:04 | Progress Note ---
Assessment and Plan - Patient Problems (1) Acute on chronic renal failure Onset Date: ~03/09/19 Current Visit: No Status: Acute Plan to address problem: Acute on chronic renal failure - baseline creatinine : 2.1 in 2016 creatinine in 2019 was 2.8mg/dl per note - admitted with peak creatinine : 12mg/dl -current creatinine : 6.7mg/dl -currently on half normal saline -agree with hypotonic solution given postobstructive aetiology. CONTINUE Ivf to 125cc/hr. -reviewed abdominal CT - keep starkey catheter in place -appreciate urology evaluation. recheck RFP. (2) Acidosis Current Visit: Yes Status: Acute Plan to address problem: acidosis :RESOLVED - STOP sodium bicarbonate tabs. (3) Urinary retention Current Visit: No Status: Acute Plan to address problem: urinary retention - bilateral hydroureteronephrosis - with severe BPH - keep starkey in place. - flomax 0.8mg daily. (4) Bilateral hydronephrosis Onset Date: ~03/09/19 Current Visit: Yes Status: Acute Plan to address problem: Bilateral hydroureteronephrosis - keep starkey in place -Appreciate urology evaluation. (5) Hyperphosphatemia Current Visit: Yes Status: Acute Plan to address problem: hyperphosphatemia 2/2 renal failure - low phosphorus diet. Subjective Principal diagnosis: Acute on chronic renal failure, jazz hyrnephrosis, UTI Interval history: 73 year old with medical history signficant for CKD stage 4, ? HTN, BPH , Hydrocele s/p recent hydrocele removal complicated by urinary retention. He reports decreased urine output. He denies any shortness of breath. he denies any fever. per chart procedure was done on 03/03 , he also had flank pain and consti pation and was seen at [facility] and labs with creatinine of 2.8 , previous creatinine was 2.1 Patient seen today urine outputs is improving intravenous fluids ongoing Denies any shortness , orthopnea or PND Objective - Vital Signs Vital signs: Vital Signs - 12hr 03/10/19 03/11/19 03/11/19 22:42 02:31 03:44 Temperature 99.1 F Pulse Rate 77 72 70 Respiratory 22 Rate Blood Pressure 126/60 123/61 Blood Pressure 123/61 [Right] O2 Sat by Pulse 96 Oximetry 03/11/19 03/11/19 03/11/19 08:25 09:42 09:43 Temperature 98.7 F Pulse Rate 72 Respiratory 20 Rate Blood Pressure 128/64 128/64 128/64 Blood Pressure [Right] O2 Sat by Pulse 97 Oximetry - General Appearance General appearance: well-developed, well-nourished EENT: ATNC, PERRL, mucous membranes moist Neck: no JVD, JVD Respiratory: Present: Clear to Ascultation Cardiology: regular, S1S2 Gastrointestinal: normal, normoactive bowel sounds Integumentary: no rash Neurologic: alert and oriented x3, CN 3-12 intact Musculoskeletal: deferred Psychiatric: mood/affect appropriate - Lab 03/11/19 05:30 03/11/19 11:04 Most recent lab results Calcium 8.5 mg/dL (8.4-10.2) 03/10/19 19:47 Phosphorus 4.60 mg/dL (2.5-4.5) H 03/10/19 06:21 Magnesium 2.60 mg/dL (1.7-2.3) H 03/10/19 06:21 Medications & Allergies - Medications Allergies/Adverse Reactions: Allergies No Known Allergies Allergy (Verified 03/09/19 13:49) Home Medications: Home Medications Medication Instructions Recorded Confirmed Last Taken Type Brimonidine/Timolol 0.2-0.5% 1 drops OP Q12H #30 bottle 05/16/16 03/09/19 03/03/19 Rx [Combigan 0.2-0.5%] Latanoprost 0.005% 1 drop OP QHS #30 bottle 05/16/16 03/09/19 03/03/19 Rx Aspirin EC [Aspirin Enteric Coated 81 mg PO QDAY 02/19/19 03/09/19 02/24/19 History TAB] Karina Root 550 mg PO DAILY 02/19/19 03/09/19 02/24/19 History Ibuprofen [Motrin] 800 mg PO Q8HR PRN 02/19/19 03/11/19 02/24/19 History Ranitidine HCl [Zantac] 150 mg PO PRN PRN 02/19/19 03/09/19 03/01/19 History Tamsulosin [Flomax] 0.4 mg PO QDAY 02/19/19 03/09/19 03/02/19 History Turm/Ging/Arun/Yuc/Tashi/Lawrence/Hor 1 each PO DAILY 02/19/19 03/09/19 02/24/19 History [Tumersaid Tablet] Active Medications: Generic Name Dose Route Start Last Admin Trade Name Cheli PRN Reason Stop Dose Admin Amlodipine Besylate 10 mg 03/10/19 10:00 03/11/19 09:42 Norvasc PO 10 mg QDAY JERAMIE Administration Aspirin 81 mg 03/10/19 10:00 03/11/19 09:41 Halfprin Ec PO 81 mg QDAY JERAMIE Administration Brimonidine/Timolol 1 drops 03/09/19 23:59 03/11/19 01:31 Combigan 0.2-0.5% OS Not Given Q12H JERAMEI Enoxaparin Sodium 30 mg 03/10/19 10:00 03/11/19 09:41 Lovenox SUB-Q 30 mg QDAY JERAMIE Administration Famotidine 10 mg 03/09/19 21:26 03/10/19 17:20 Pepcid PO 10 mg BID PRN Administration Indigestion Ceftriaxone Sodium 1 gm in 50 mls @ 100 mls/hr 03/10/19 10:00 03/11/19 09:38 Rocephin/Ns 1 Gm/50 Ml IV 100 mls/hr Q24HR JERAMIE Administration Protocol Dextrose/Sodium Chloride 1,000 mls @ 125 mls/hr 03/09/19 22:00 03/11/19 05:28 D5/0.45ns IV 100 mls/hr DIRECT JERAMIE Administration Latanoprost 1 drops 03/09/19 23:59 03/10/19 22:42 Latanoprost 0.005% OU 1 drops QHS JERAMIE Administration Metoprolol Tartrate 50 mg 03/10/19 10:00 03/11/19 09:43 Lopressor PO 50 mg BID JERAMIE Administration Sodium Bicarbonate 1,300 mg 03/10/19 11:00 03/11/19 09:40 Sodium Bicarbonate PO 1,300 mg BID JERAMIE Administration Tamsulosin HCl 0.8 mg 03/10/19 10:00 03/11/19 09:41 Flomax PO 0.8 mg QDAY JERAMIE Administration
[2019-03-11 11:43] LABS: Calcium 8.2 mg/dL (8.4-10.2)
--- NOTE | 2019-03-11 17:53 | Progress Note ---
Subjective Date of service: 03/11/19 Principal diagnosis: Acute on chronic renal failure, jazz hyrnephrosis, UTI Interval history: 73 year old with medical history signficant for CKD stage 4, ? HTN, BPH , Hydrocele s/p recent hydrocele removal complicated by urinary retention. He reports decreased urine output. He denies any shortness of breath. he denies any fever. per chart procedure was done on 03/03 , he also had flank pain and constipation and was seen at [facility] and labs with creatinine of 2.8 , previous creatinine was 2.1 . He denies any nausea ,vomitting or diarrheoa. A CT abdomen on arrival showed bilateral hydroureteronephrosis and enlarged prostate with stone 0.6cm in left distal ureter. abd soft a/p retention BPH left ureteral stone cysto: possible stent, turp Objective - Constitutional Vitals: Vital Signs - 12hr 03/11/19 03/11/19 03/11/19 08:25 09:42 09:43 Temperature 98.7 F Pulse Rate 72 Respiratory 20 Rate Blood Pressure 128/64 128/64 128/64 O2 Sat by Pulse 97 Oximetry 03/11/19 14:32 Temperature 98.7 F Pulse Rate 66 Respiratory 20 Rate Blood Pressure 126/63 O2 Sat by Pulse 94 Oximetry - Labs CBC & Chem 7: 03/11/19 05:30 03/11/19 11:04 Labs: Abnormal lab results 03/10/19 03/11/19 03/11/19 Range/Units 19:47 05:30 11:04 Hgb 10.8 L (11.8-15.2) gm/dl Hct 32.0 L (35.5-45.6) % MCV 83 L (84-94) fl RDW 15.8 H (13.2-15.2) % Monocytes % (Manual) 13.0 H (0.0-7.3) % Sodium 136 L (137-145) mmol/L BUN 33 H 21 H (9-20) mg/dL Creatinine 3.4 H 2.0 H (0.8-1.5) mg/dL Glucose 114 H 117 H (75-100) mg/dL Calcium 8.2 L (8.4-10.2) mg/dL Medications & Allergies - Medications Allergies/Adverse Reactions: Allergies No Known Allergies Allergy (Verified 03/09/19 13:49) Home Medications: Home Medications Medication Instructions Recorded Confirmed Last Taken Type Brimonidine/Timolol 0.2-0.5% 1 drops OP Q12H #30 bottle 05/16/16 03/09/19 03/03/19 Rx [Combigan 0.2-0.5%] Latanoprost 0.005% 1 drop OP QHS #30 bottle 05/16/16 03/09/19 03/03/19 Rx Aspirin EC [Aspirin Enteric Coated 81 mg PO QDAY 02/19/19 03/09/19 02/24/19 History TAB] Karina Root 550 mg PO DAILY 02/19/19 03/09/19 02/24/19 History Ibuprofen [Motrin] 800 mg PO Q8HR PRN 02/19/19 03/11/19 02/24/19 History Ranitidine HCl [Zantac] 150 mg PO PRN PRN 02/19/19 03/09/19 03/01/19 History Tamsulosin [Flomax] 0.4 mg PO QDAY 02/19/19 03/09/19 03/02/19 History Turm/Ging/Arun/Yuc/Tashi/Lawrence/Hor 1 each PO DAILY 02/19/19 03/09/19 02/24/19 History [Tumersaid Tablet] Active Medications: Generic Name Dose Route Start Last Admin Trade Name Freq PRN Reason Stop Dose Admin Amlodipine Besylate 10 mg 03/10/19 10:00 03/11/19 09:42 Norvasc PO 10 mg QDAY JERAMIE Administration Aspirin 81 mg 03/10/19 10:00 03/11/19 09:41 Halfprin Ec PO 81 mg QDAY JERAMIE Administration Brimonidine/Timolol 1 drops 03/09/19 23:59 03/11/19 13:19 Combigan 0.2-0.5% OS 1 drops Q12H JERAMIE Administration Enoxaparin Sodium 30 mg 03/10/19 10:00 03/11/19 09:41 Lovenox SUB-Q 30 mg QDAY JERAMIE Administration Famotidine 10 mg 03/09/19 21:26 03/10/19 17:20 Pepcid PO 10 mg BID PRN Administration Indigestion Ceftriaxone Sodium 1 gm in 50 mls @ 100 mls/hr 03/10/19 10:00 03/11/19 09:38 Rocephin/Ns 1 Gm/50 Ml IV 100 mls/hr Q24HR JERAMIE Administration Protocol Dextrose/Sodium Chloride 1,000 mls @ 125 mls/hr 03/09/19 22:00 03/11/19 13:52 D5/0.45ns IV 100 mls/hr DIRECT JERAMIE Administration Latanoprost 1 drops 03/09/19 23:59 03/10/19 22:42 Latanoprost 0.005% OU 1 drops QHS JERAMIE Administration Metoprolol Tartrate 50 mg 03/10/19 10:00 03/11/19 09:43 Lopressor PO 50 mg BID JERAMIE Administration Sodium Bicarbonate 1,300 mg 03/10/19 11:00 03/11/19 09:40 Sodium Bicarbonate PO 1,300 mg BID JERAMIE Administration Tamsulosin HCl 0.8 mg 03/10/19 10:00 03/11/19 09:41 Flomax PO 0.8 mg QDAY JERAMIE Administration
[2019-03-11 21:09] LABS: Calcium 8.6 mg/dL (8.4-10.2)
[2019-03-11] MEDS: LATANOPROST 0.005% OU SCH (22:14)
[2019-03-12] MEDS: D5/0.45NS 1,000 ML IV SCH (05:05)
[2019-03-12 08:28] LABS: Basophils # (Auto) 0.1 K/mm3 (0.0-0.1); Basophils % (Auto) 1.1 % (0.0-1.8); Eosinophils # (Auto) 0.2 K/mm3 (0.0-0.4); Hematocrit 33.5 % (35.5-45.6); Hemoglobin 11.1 gm/dl (11.8-15.2); Lymphocytes # (Auto) 1.3 K/mm3 (1.2-5.4); Mean Corpuscular HGB Conc 33 % (32-34); Mean Corpuscular Volume 84 fl (84-94); Monocytes # (Auto) 0.9 K/mm3 (0.0-0.8); Monocytes % (Auto) 14.5 % (0.0-7.3); Platelet Count 263 K/mm3 (140-440); Red Blood Count 4.01 M/mm3 (3.65-5.03); Red Cell Distribution Width 15.9 % (13.2-15.2)
--- NOTE | 2019-03-12 08:55 | Progress Note ---
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 Severity was 5-7/10. Nonradia ting. No known aggravating or relieving factors. Had no nausea or vomiting. Onset was after commencing hydrocodone given or post op pain. pain worsened for which he had to go to the ED at [facility]. Blood chemistry showed a Cr level of 2.8 with BUN of 19. Base line creatinine was 2.1 as of 04/2016. He was discharged with a diagnosis of constipation and placed on stool softners. He followed up with me on the office on 03/06/19 and was given a referral to follow up with his Pearl Restorer. His right sided abdominal pain continue with decreased urine output for which he presented to the ED at [facility] today 03/09/19. Blood chemistry showed a cratinine level of 12.9 and BUN of 73. CT abdomen and pelvis showed nadeem hydroureteronephrosis with a enlarged prostate and left mid non obstructing 0.6 cm urteric stone. Patient denies any fever, N/V, chest pain, or shortness of breath. Denies any hematuria. Indewelling Rosado with continuous drainge inserted. 500 ml of urine drained immediately. Nephrology and Urology consulted. Pt to have TURP and cytoscopy with left ureteric sten placement - Acute on chronic renal failure - improved to baseline Secondry to obstructive uropathy Continue with indewelling Rosado with continous drainage. Avoid nephrotoxic substances Renal dosing of all meds Nephrology consulted and following. - Urinary obstruction from BPH Foleys catheter inserte and 500ml of urine drained immediately on insertion continue Flomax Obtain CXR and EKG for preop eval. - Anemia of Chronic disease Low iron and low TIBC trend H/H - Nadeem hyroureters and hydronephrosis From obstructive uropathy Urology consultedadn followign. Planing on TURP as pt has had recurrent urinary obstruction Plans TURP later in the week - HTN - controlled Continue on oral antihypertensive - Left ureteric stone measuring 0.6 cm Nonsobstructing Urology following. Plans stent placement - UTI Urine Cx showed no growth so far Continue with Rocephin - H/o IBS with Constipation continue with Amitiza - DVT PPx with lovenox and Gi with pepcid - ACP: pt is full code Time spend : 25 min mins - Patient Problems (1) Bilateral hydronephrosis Onset Date: ~03/09/19 Current Visit: Yes Status: Acute (2) Left ureteral stone Onset Date: ~03/09/19 Current Visit: Yes Status: Acute (3) Acute on chronic renal failure Onset Date: ~03/09/19 Current Visit: No Status: Acute (4) Bilateral hydrocele Onset Date: ~03/09/19 Current Visit: Yes Status: Acute (5) UTI (urinary tract infection) Onset Date: ~03/09/19 Current Visit: No Status: Acute (6) BPH with obstruction/lower urinary tract symptoms Onset Date: ~03/09/19 Current Visit: Yes Status: Acute (7) DVT prophylaxis Onset Date: ~03/09/19 Current Visit: Yes Status: Acute (8) Irritable bowel syndrome with constipation Onset Date: ~01/03/19 Current Visit: Yes Status: Acute Subjective Date of service: 03/12/19 Principal diagnosis: Acute on chronic renal failure, nadeem hyrnephrosis, UTI Interval history: no new complaints. Abdominal pain resolved. Denies any fever or chest pain. Feeling better Objective - Exam Narrative Exam: Constitutional: Well-nourished well-developed. In no distress Head: Normocephalic atraumatic Eyes: Pupils are equal round and reactive to light Nose: No enlarged turbinates, no septal deviation. Mouth: Moist mucous membranes. Neck: Supple no thyromegaly. No bruit. No JVD Heart: Regular rate and rhythm, S1-S2 normal. No rubs murmurs or gallop Lungs: Clear to auscultation bilaterally. no rales or rhonchi Abdomen: Soft, nontender. Bowel sound are present. Extremities: No edema, no cyanosis, no clubbing. Neuro: Alert oriented Oriented x3. No focal sensory or motor deficit. Skin: No rashes or hyperpigmented spots Musculoskeletal system: No joint pain or swelling Hematological: No petechia or subcutanous hemorrhages. Immunological: No multiple septic spots on the skin AMELIA: Indwelling Foleys on continuos drainage. Healing scrotal incision with drain in place. Lymphatic: No generalized lymphadenopathy Psychiatry: Euthymic. Calm. - Constitutional Vitals: Vital Signs - 12hr 03/11/19 03/11/19 03/12/19 22:00 22:15 02:27 Temperature 98.3 F Pulse Rate 69 67 Respiratory 20 20 Rate Blood Pressure 133/62 131/67 O2 Sat by Pulse 97 Oximetry 03/12/19 07:51 Temperature 98.6 F Pulse Rate 76 Respiratory 18 Rate Blood Pressure 115/66 O2 Sat by Pulse 95 Oximetry - Labs CBC & Chem 7: 03/12/19 07:19 03/11/19 20:24 Labs: Abnormal lab results 03/11/19 03/11/19 03/12/19 Range/Units 11:04 20:24 07:19 Hgb 11.1 L (11.8-15.2) gm/dl Hct 33.5 L (35.5-45.6) % RDW 15.9 H (13.2-15.2) % [place] % (Auto) 14.5 H (0.0-7.3) % [place] # 0.9 H (0.0-0.8) K/mm3 BUN 21 H (9-20) mg/dL Creatinine 2.0 H 1.7 H (0.8-1.5) mg/dL Glucose 117 H 111 H (75-100) mg/dL Calcium 8.2 L (8.4-10.2) mg/dL
[2019-03-12] MEDS ORDERED: LOVENOX SUB-Q SCH (10:00)
[2019-03-12] MEDS: ROCEPHIN/NS 1 GM/50 ML 1 GM/50 ML BAG IV SCH (10:50)
[2019-03-12] MEDS: FLOMAX PO SCH (10:51)
[2019-03-12] MEDS: SODIUM BICARBONATE PO SCH (10:51)
[2019-03-12] MEDS: PEPCID PO PRN (10:51)
[2019-03-12] MEDS: HALFPRIN EC PO SCH (10:51)
[2019-03-12] MEDS: NORVASC PO SCH (10:52)
[2019-03-12] MEDS: LOPRESSOR PO SCH ×2 (10:52→23:45)
--- NOTE | 2019-03-12 14:25 | Progress Note ---
Assessment and Plan - Patient Problems (1) Acute on chronic renal failure Onset Date: ~03/09/19 Current Visit: No Status: Acute Plan to address problem: Acute on chronic renal failure resolved - baseline creatinine : 2.1 in 2016 creatinine in 2019 was 2.8mg/dl per note - admitted with peak creatinine : 12mg/dl -current creatinine : 1.7 mg/dl -currently on half normal saline -Received hypotonic solution given postobstructive aetiology. We'll discontinue intravenous fluids -reviewed abdominal CT - keep starkey catheter in place -appreciate urology evaluation. recheck RFP. (2) Acidosis Current Visit: Yes Status: Acute Plan to address problem: acidosis :RESOLVED - STOP sodium bicarbonate tabs. (3) Urinary retention Current Visit: No Status: Acute Plan to address problem: urinary retention - bilateral hydroureteronephrosis - with severe BPH - keep starkey in place. - flomax 0.8mg daily. Scheduled for cystoscopy and possible transurethral resection of prostate/stent placement (4) Bilateral hydronephrosis Onset Date: ~03/09/19 Current Visit: Yes Status: Acute Plan to address problem: Bilateral hydroureteronephrosis - keep starkey in place -Appreciate urology evaluation. (5) Hyperphosphatemia Current Visit: Yes Status: Acute Plan to address problem: hyperphosphatemia 2/2 renal failure - low phosphorus diet. Subjective Principal diagnosis: Acute on chronic renal failure, jazz hyrnephrosis, UTI Interval history: 73 year old with medical history signficant for CKD stage 4, ? HTN, BPH , Hydrocele s/p recent hydrocele removal complicated by urinary retention. He reports decreased urine output. He denies any shortness of breath. he denies any fever. per chart procedure was done on 03/03 , he also had flank pain and constipation and was seen at [facility] and labs with creatinine of 2.8 , previous creatinine was 2.1 Patient seen today urine outputs is excellent still on intravenous fluids ongoing Denies any shortness, orthopnea or PND Scheduled for cystoscopy procedure today Objective - Vital Signs Vital signs: Vital Signs - 12hr 03/12/19 03/12/19 03/12/19 02:27 07:51 10:52 Temperature 98.3 F 98.6 F Pulse Rate 67 76 Respiratory 20 18 Rate Blood Pressure 131/67 115/66 115/66 O2 Sat by Pulse 97 95 Oximetry - General Appearance General appearance: well-developed, well-nourished EENT: ATNC, PERRL, mucous membranes moist Neck: no JVD Respiratory: Present: Clear to Ascultation, Decreased Breath Sounds Cardiology: regular, S1S2 Gastrointestinal: normal, normoactive bowel sounds Integumentary: no rash Neurologic: no focal deficit, alert and oriented x3 Musculoskeletal: deferred Psychiatric: mood/affect appropriate - Lab 03/12/19 07:19 03/11/19 20:24 Most recent lab results Calcium 8.6 mg/dL (8.4-10.2) 03/11/19 20:24 Phosphorus 4.60 mg/dL (2.5-4.5) H 03/10/19 06:21 Magnesium 2.60 mg/dL (1.7-2.3) H 03/10/19 06:21 - Imaging Chest x-ray: image reviewed (chest x-ray reviewed without any edema) Medications & Allergies - Medications Allergies/Adverse Reactions: Allergies No Known Allergies Allergy (Verified 03/09/19 13:49) Home Medications: Home Medications Medication Instructions Recorded Confirmed Last Taken Type Brimonidine/Timolol 0.2-0.5% 1 drops OP Q12H #30 bottle 05/16/16 03/09/19 03/03/19 Rx [Combigan 0.2-0.5%] Latanoprost 0.005% 1 drop OP QHS #30 bottle 05/16/16 03/09/19 03/03/19 Rx Aspirin EC [Aspirin Enteric Coated 81 mg PO QDAY 02/19/19 03/09/19 02/24/19 History TAB] Karina Root 550 mg PO DAILY 02/19/19 03/09/19 02/24/19 History Ibuprofen [Motrin] 800 mg PO Q8HR PRN 02/19/19 03/11/19 02/24/19 History Ranitidine HCl [Zantac] 150 mg PO PRN PRN 02/19/19 03/09/19 03/01/19 History Tamsulosin [Flomax] 0.4 mg PO QDAY 02/19/19 03/09/19 03/02/19 History Turm/Ging/Arun/Yuc/Tashi/Lawrence/Hor 1 each PO DAILY 02/19/19 03/09/1919 History [Tumersaid Tablet] Active Medications: Generic Name Dose Route Start Last Admin Trade Name Justinoq PRN Reason Stop Dose Admin Amlodipine Besylate 10 mg 03/10/19 10:00 03/12/19 10:52 Norvasc PO 10 mg QDAY JERAMIE Administration Aspirin 81 mg 03/10/19 10:00 03/12/19 10:51 Halfprin Ec PO 81 mg QDAY JERAMIE Administration Brimonidine/Timolol 1 drops 03/09/19 23:59 03/12/19 00:00 Combigan 0.2-0.5% OS 1 drops Q12H JERAMIE Administration Enoxaparin Sodium 40 mg 03/12/19 10:00 03/12/19 10:51 Lovenox SUB-Q 40 mg QDAY@1000 JERAMIE Administration Famotidine 10 mg 03/09/19 21:26 03/12/19 10:51 Pepcid PO 10 mg BID PRN Administration Indigestion Ceftriaxone Sodium 1 gm in 50 mls @ 100 mls/hr 03/10/19 10:00 03/12/19 10:50 Rocephin/Ns 1 Gm/50 Ml IV 100 mls/hr Q24HR JERAMIE Administration Protocol Latanoprost 1 drops 03/09/19 23:59 03/11/19 22:14 Latanoprost 0.005% OU 1 drops QHS JERAMIE Administration Metoprolol Tartrate 50 mg 03/10/19 10:00 03/12/19 10:52 Lopressor PO 50 mg BID JERAMIE Administration Tamsulosin HCl 0.8 mg 03/10/19 10:00 03/12/19 10:51 Flomax PO 0.8 mg QDAY JERAMIE Administration
--- NOTE | 2019-03-12 14:28 | XRay Report ---
PROCEDURE: XR CHEST 1V AP TECHNIQUE: Chest radiograph single view. HISTORY: preop COMPARISONS: None . FINDINGS: Heart: Heart size top normal. Mediastinum/Vessels: Trachea midline. Atherosclerotic tortuosity aorta. Lungs/Pleural space: Normal. Bony thorax: No acute osseous abnormality. Life support devices: None. IMPRESSION: No acute cardiopulmonary abnormality. This document is electronically signed by Jose Rafael Waldrop MD., Mar 12 2019 02:26:42 PM ET
[2019-03-12] MEDS: COMBIGAN 0.2-0.5% OS SCH ×3 (18:20→23:45)
[2019-03-12] MEDS ORDERED: XYLOCAINE MPF 2% ONE (20:12)
[2019-03-12] MEDS ORDERED: SUBLIMAZE ONE ×2 (20:13→21:19)
[2019-03-12] MEDS ORDERED: DIPRIVAN 10 MG/ML IV ONE (20:13)
--- NOTE | 2019-03-12 20:21 | Anesthesia Consultation ---
Anesthesia Consult and Med Hx - Airway Anesthetic Teeth Evaluation: Dentures ROM Head & Neck: Adequate Mental/Hyoid Distance: Adequate Mallampati Class: Class II Intubation Access Assessment: Good - Pulmonary Exam CTA: Yes - Cardiac Exam Cardiac Exam: RRR - Pre-Operative Health Status ASA Pre-Surgery Classification: ASA3 Proposed Anesthetic Plan: General - Pulmonary Hx Smoking: Yes (STOPPED 1974) SOB: No Hx Sleep Apnea: No (MARJORIE PRE SCREEN LOW RISK.) - Cardiovascular System Hx Hypertension: Yes Hx Coronary Artery Disease: No (Neg NST 11/2018; ECHO 2014) Hx Angina: (atypical chestpain, negative exercise stress test 08/2015) - Central Nervous System Hx Neuromuscular Disorder: (arthritis) Hx Back Pain: Yes - Endocrine Hx Renal Disease: Yes (CKD) - Other Systems Hx Cancer: No
[2019-03-12] MEDS ORDERED: DILAUDID IV PRN (20:22)
[2019-03-12] MEDS ORDERED: ZOFRAN IV PRN (20:22)
--- NOTE | 2019-03-12 20:22 | Anesthesia Day of Surgery ---
Anesthesia Day of Surgery - Day of Surgery Patient Examined: Yes Patient H&P Reviewed: Yes Patient is NPO: Yes
[2019-03-12] MEDS ORDERED: NACL 0.9% 1000 ML 1,000 ML ONE (20:35)
[2019-03-12] MEDS ORDERED: OMNIPAQUE (240mg) IV ONE (20:37)
[2019-03-12] MEDS ORDERED: WATER FOR IRRIG STERILE IR ONE (20:37)
[2019-03-12] MEDS ORDERED: NACL 0.9% IR ONE (20:37)
[2019-03-12] MEDS ORDERED: DILAUDID ONE ×2 (21:55→22:30)
--- NOTE | 2019-03-12 21:58 | Post Operative Note ---
Date of procedure: 03/12/19 Pre-op diagnosis: BPH, RETENTION, LEFT URETERAL STONE Post-op diagnosis: same Findings: CYSTO, RPG, LEFT URETEROSCOPY, BASKET STONE, STENT WITH SHORT INTERNAL STRING (GIVE PT THE STONE), TURP Anesthesia: VIRGEN Surgeon: GRACE RANGEL Estimated blood loss: 50-100ml Pathology: list (PROSTATE CHIPS) Specimen disposition: to lab Condition: stable Disposition: PACU
[2019-03-12] MEDS ORDERED: NACL 0.9% 4,000 ML ONE (22:45)
[2019-03-12] MEDS: LATANOPROST 0.005% OU SCH (23:59)
[2019-03-13] MEDS: NACL 0.9% IR PRN ×22 (00:55→16:50)
[2019-03-13 05:00] LABS: Basophils % (Auto) 0.6 % (0.0-1.8); Eosinophils # (Auto) 0.1 K/mm3 (0.0-0.4); Eosinophils % (Auto) 0.7 % (0.0-4.3); Hematocrit 36.7 % (35.5-45.6); Lymphocytes % (Auto) 12.4 % (13.4-35.0); Mean Corpuscular HGB Conc 33 % (32-34); Mean Corpuscular Volume 84 fl (84-94); Monocytes # (Auto) 0.6 K/mm3 (0.0-0.8); Monocytes % (Auto) 7.4 % (0.0-7.3); Platelet Count 299 K/mm3 (140-440); Red Blood Count 4.36 M/mm3 (3.65-5.03); Red Cell Distribution Width 15.9 % (13.2-15.2)
[2019-03-13 05:18] LABS: Calcium 8.5 mg/dL (8.4-10.2)
[2019-03-13] MEDS: PERCOCET 5/325 PO PRN ×4 (06:20→23:25)
--- NOTE | 2019-03-13 08:00 | Fluoroscopy Report ---
FLUOROSCOPY RETROGRADE UROGRAPHY: HISTORY: Left ureteral stone, BPH. FINDINGS: Fluoroscopy was provided by radiology during retrograde urography by the urologist. 10 fluoroscopic images were captured. An approximately 6 mm calculus is identified in the mid left ureter with up stream hydronephrosis. Left ureteroscopy was performed. The stone was removed with the use of a basket. A left ureteral stent was placed with good drainage of the left collecting system. Please correlate with the procedural report as needed. Images of the right retrograde pyelogram are within normal limits. IMPRESSION: Left ureteral stone removal. Left ureteral stent placement.
--- NOTE | 2019-03-13 09:10 | Progress Note ---
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 Severity was 5-7/10. Nonradia ting. No known aggravating or relieving factors. Had no nausea or vomiting. Onset was after commencing hydrocodone given or post op pain. pain worsened for which he had to go to the ED at [facility]. Blood chemistry showed a Cr level of 2.8 with BUN of 19. Base line creatinine was 2.1 as of 04/2016. He was discharged with a diagnosis of constipation and placed on stool softners. He followed up with me on the office on 03/06/19 and was given a referral to follow up with his Lease Buyer. His right sided abdominal pain continue with decreased urine output for which he presented to the ED at [facility] today 03/09/19. Blood chemistry showed a cratinine level of 12.9 and BUN of 73. CT abdomen and pelvis showed nadeem hydroureteronephrosis with a enlarged prostate and left mid non obstructing 0.6 cm urteric stone. Patient denies any fever, N/V, chest pain, or shortness of breath. Denies any hematuria. Indewelling Rosado with continuous drainage inserted. 500 ml of urine drained immediately. Nephrology and Urology consulted. Pt to have TURP and cytoscopy with left ureteric stent placement 03/12/19: Had CYSTO, RPG, LEFT URETEROSCOPY, BASKET STONE, STENT WITH SHORT INTERNAL STRING, TURP - Urinary obstruction from BPH s/p TURP Foleys catheter in connect to urine bag. On Childs's drip Urine clearing post op - Nadeem hyroureters and hydronephrosis From obstructive uropathy S/p TURP with left ureteric stent placement - Left ureteric stone measuring 0.6 cm Nonsobstructing Cycstocopy and RPG and stent placement - Acute on chronic renal failure - resolved. Secondry to obstructive uropathy s/p TURP Continue with indewelling Rosado with continous drainage. Nephrology consulted and following. - Anemia of Chronic disease Low iron and low TIBC trend H/H - HTN - Continue on oral antihypertensive - UTI Urine Cx showed no growth so far Continue with Rocephin - H/o IBS with Constipation continue with Amitiza Avoid narcotic as much as possible - DVT PPx with lovenox and Gi with pepcid - ACP: Pt is full code Time spend : 30min mins - Patient Problems (1) Bilateral hydronephrosis Onset Date: ~03/09/19 Current Visit: Yes Status: Acute (2) Left ureteral stone Onset Date: ~03/09/19 Current Visit: Yes Status: Acute (3) Acute on chronic renal failure Onset Date: ~03/09/19 Current Visit: No Status: Acute (4) Bilateral hydrocele Onset Date: ~03/09/19 Current Visit: Yes Status: Acute (5) UTI (urinary tract infection) Onset Date: ~03/09/19 Current Visit: No Status: Acute (6) BPH with obstruction/lower urinary tract symptoms Onset Date: ~03/09/19 Current Visit: Yes Status: Acute (7) DVT prophylaxis Onset Date: ~03/09/19 Current Visit: Yes Status: Acute (8) Irritable bowel syndrome with constipation Onset Date: ~01/03/19 Current Visit: Yes Status: Acute Subjective Date of service: 03/13/19 Principal diagnosis: Acute on chronic renal failure, nadeem hyrnephrosis, UTI Interval history: Had stent placement and TURP yesterday. Lying quielty in bed. No new complaints. Objective - Exam Narrative Exam: Constitutional: Well-nourished well-developed. In no distress Head: Normocephalic atraumatic Eyes: Pupils are equal round and reactive to light Nose: No enlarged turbinates, no septal deviation. Mouth: Moist mucous membranes. Neck: Supple no thyromegaly. No bruit. No JVD Heart: Regular rate and rhythm, S1-S2 normal. No rubs murmurs or gallop Lungs: Clear to auscultation bilaterally. no rales or rhonchi Abdomen: Soft, nontender. Bowel sound are present. Extremities: No edema, no cyanosis, no clubbing. Neuro: Alert oriented Oriented x3. No focal sensory or motor deficit. Skin: No rashes or hyperpigmented spots Musculoskeletal system: No joint pain or swelling Hematological: No petechia or subcutanous hemorrhages. Immunological: No multiple septic spots on the skin AMELIA: Indwelling Foleys on continuos drainage. S/p TURP. Healing scrotal incision with drain in place. Lymphatic: No generalized lymphadenopathy Psychiatry: Euthymic. Calm. - Constitutional Vitals: Vital Signs - 12hr 03/12/19 03/12/19 03/12/19 22:00 22:20 22:25 Temperature 97.9 F Pulse Rate 87 84 Respiratory 20 16 10 L Rate Blood Pressure 146/85 154/81 Blood Pressure [Left] O2 Sat by Pulse 99 100 Oximetry 03/12/19 03/12/19 03/12/19 22:30 22:45 23:00 Temperature 97.7 F Pulse Rate 79 70 69 Respiratory 16 11 L 12 Rate Blood Pressure 167/83 146/84 153/80 Blood Pressure [Left] O2 Sat by Pulse 100 99 99 Oximetry 03/12/19 03/12/19 03/13/19 23:23 23:45 06:17 Temperature 97.4 F L 97.9 F Pulse Rate 69 69 67 Respiratory 20 20 Rate Blood Pressure 169/86 Blood Pressure 169/86 150/78 [Left] O2 Sat by Pulse 98 98 Oximetry 03/13/19 03/13/19 06:20 07:37 Temperature Pulse Rate 70 Respiratory 20 Rate Blood Pressure Blood Pressure [Left] O2 Sat by Pulse 99 Oximetry - Labs CBC & Chem 7: 03/14/19 08:01 03/14/19 08:01 Labs: Abnormal lab results 03/13/19 03/13/19 Range/Units 04:06 04:06 RDW 15.9 H (13.2-15.2) % Lymph % (Auto) 12.4 L (13.4-35.0) % [place] % (Auto) 7.4 H (0.0-7.3) % Lymph # 1.0 L (1.2-5.4) K/mm3 Seg Neutrophils % 78.9 H (40.0-70.0) % Glucose 122 H (75-100) mg/dL
[2019-03-13] MEDS: COMBIGAN 0.2-0.5% OS SCH ×2 (09:19→11:59)
[2019-03-13] MEDS: FLOMAX PO SCH (09:20)
[2019-03-13] MEDS: LOPRESSOR PO SCH ×2 (09:20→21:31)
[2019-03-13] MEDS: NORVASC PO SCH (09:21)
--- NOTE | 2019-03-13 10:01 | Operative Report ---
PREOPERATIVE DIAGNOSES: Urinary retention, left ureteral stone, 4 mm. POSTOPERATIVE DIAGNOSES: Urinary retention, left ureteral stone, 4 mm. PROCEDURE: Cystoscopy, bilateral retrograde pyelograms, left rigid ureteroscopy, basket stone extraction, double-J stent with an internal string (6-Citizen [place] 28 cm), transurethral resection of the prostate. SURGEON: Shaheen Kovacs MD ANESTHESIA: General. ESTIMATED BLOOD LOSS: Minimal. FLUIDS: Crystalloid. COMPLICATIONS: No complications. INDICATIONS: This patient is a 73-year-old gentleman known to my service, who underwent recent hydrocelectomy. Postoperatively, he did well. He had some history of urinary retention after a hernia repair a year ago, started to have worsening voiding problems, presented to the Emergency Room with flank pain. CT of abdomen and pelvis revealed bilateral hydronephrosis, urinary retention, left ureteral stone. The patient was admitted to the hospital. Nephrology was consulted as well. He actually needed acutely to be dialyzed once he was stabilized, subsequently taken to surgery. DESCRIPTION OF PROCEDURE: The patient was taken to the operative suite, placed in a supine position. After adequate general anesthesia, he was placed in a dorsal lithotomy position, prepped and draped in a sterile fashion. Pancystourethroscopy was performed with a 22-Citizen [place] Storz cystoscope, no urethral abnormalities. His prostate revealed trilobar obstruction with a significant median lobe. Both ureteral orifices in normal position. Diffuse trabeculation could be appreciated. Bilateral retrograde pyelograms were obtained with an 8 Citizen [place] Kristina catheter and 8 mL of contrast. No filling defects or obstruction on the right. Left side, some J hooking and a filling defect mid ureter. Two 0.035 Glidewires were placed up the collecting system. The patient had some edema of the lower ureter. Ureteroscopy up to the mid ureter, the stone could be appreciated. It was engaged with a 3-Citizen [place] Sherita basket and extracted without difficulty. A 6-Citizen [place] 28 cm double-J stent with a short internal string was left indwelling. Next, using the monopolar resectoscope, medium resectoscope, transurethral resection of the prostate was performed primarily taken down the median lobe. Some of the lateral lobes were removed as well. He had a good channel. The chips were evacuated out with the FiveRuns evacuator. Adequate hemostasis was achieved. A 22-Citizen [place] 3-way catheter to Childs's drip was placed, irrigated clear. Rectal exam was benign. He was extubated and taken to recovery room in stable condition. [facility]# [id number] GIL/NTS
[2019-03-13] MEDS: ROCEPHIN/NS 1 GM/50 ML 1 GM/50 ML BAG IV SCH (12:43)
--- NOTE | 2019-03-13 17:06 | Progress Note ---
Subjective Date of service: 03/13/19 Principal diagnosis: Acute on chronic renal failure, jazz hyrnephrosis, UTI Interval history: 73 year old with medical history signficant for CKD stage 4, ? HTN, BPH , Hydrocele s/p recent hydrocele removal complicated by urinary retention. He reports decreased urine output. He denies any shortness of breath. he denies any fever. per chart procedure was done on 03/03 , he also had flank pain and constipation and was seen at [facility] and labs with creatinine of 2.8 , previous creatinine was 2.1 . He denies any nausea ,vomitting or diarrheoa. A CT abdomen on arrival showed bilateral hydroureteronephrosis and enlarged prostate with stone 0.6cm in left distal ureter. 03/12/19: Had CYSTO, RPG, LEFT URETEROSCOPY, BASKET STONE, STENT WITH SHORT INTERNAL STRING, TURP abd soft starkey-----pink tinged a/p stop grant ?home tomorrow with starkey Objective - Constitutional Vitals: Vital Signs - 12hr 03/13/19 03/13/19 03/13/19 06:17 06:20 07:20 Temperature 97.9 F Pulse Rate 67 Respiratory 20 20 20 Rate Blood Pressure Blood Pressure 150/78 [Left] O2 Sat by Pulse 98 Oximetry 03/13/19 03/13/19 03/13/19 07:37 09:20 11:35 Temperature 97.9 F Pulse Rate 70 70 67 Respiratory 18 Rate Blood Pressure 150/78 141/78 Blood Pressure [Left] O2 Sat by Pulse 99 97 Oximetry - Labs CBC & Chem 7: 03/13/19 04:06 03/13/19 04:06 Labs: Abnormal lab results 03/13/19 03/13/19 Range/Units 04:06 04:06 RDW 15.9 H (13.2-15.2) % Lymph % (Auto) 12.4 L (13.4-35.0) % [place] % (Auto) 7.4 H (0.0-7.3) % Lymph # 1.0 L (1.2-5.4) K/mm3 Seg Neutrophils % 78.9 H (40.0-70.0) % Glucose 122 H (75-100) mg/dL Medications & Allergies - Medications Allergies/Adverse Reactions: Allergies No Known Allergies Allergy (Verified 03/09/19 13:49) Home Medications: Home Medications Medication Instructions Recorded Confirmed Last Taken Type Brimonidine/Timolol 0.2-0.5% 1 drops OP Q12H #30 bottle 05/16/16 03/09/19 03/03/19 Rx [Combigan 0.2-0.5%] Latanoprost 0.005% 1 drop OP QHS #30 bottle 05/16/16 03/09/19 03/03/19 Rx Aspirin EC [Aspirin Enteric Coated 81 mg PO QDAY 02/19/19 03/09/19 02/24/19 History TAB] Karina Root 550 mg PO DAILY 02/19/19 03/09/19 02/24/19 History Ibuprofen [Motrin] 800 mg PO Q8HR PRN 02/19/19 03/11/19 02/24/19 History Ranitidine HCl [Zantac] 150 mg PO PRN PRN 02/19/19 03/09/19 03/01/19 History Tamsulosin [Flomax] 0.4 mg PO QDAY 02/19/19 03/09/19 03/02/19 History Turm/Ging/Arun/Yuc/Tashi/Lawrence/Hor 1 each PO DAILY 02/19/19 03/09/19 02/24/19 History [Tumersaid Tablet] Active Medications: Generic Name Dose Route Start Last Admin Trade Name Freq PRN Reason Stop Dose Admin Amlodipine Besylate 10 mg 03/10/19 10:00 03/13/19 09:21 Norvasc PO 10 mg QDAY JERAMIE Administration Brimonidine/Timolol 1 drops 03/13/19 12:00 03/13/19 11:59 Combigan 0.2-0.5% OS Not Given Q12H JERAMIE Famotidine 10 mg 03/09/19 21:26 03/12/19 10:51 Pepcid PO 10 mg BID PRN Administration Indigestion Ceftriaxone Sodium 1 gm in 50 mls @ 100 mls/hr 03/10/19 10:00 03/13/19 12:43 Rocephin/Ns 1 Gm/50 Ml IV 100 mls/hr Q24HR JERAMIE Administration Protocol Latanoprost 1 drops 03/09/19 23:59 03/12/19 23:59 Latanoprost 0.005% OU 1 drops QHS JERAMIE Administration Metoprolol Tartrate 50 mg 03/10/19 10:00 03/13/19 09:20 Lopressor PO 50 mg BID JERAMIE Administration Oxycodone/Acetaminophen 2 tab 03/13/19 06:13 03/13/19 12:55 Percocet 5/325 PO 2 tab Q6H PRN Administration Pain, Moderate (4-6) Sodium Chloride 2,000 ml 03/13/19 01:00 03/13/19 16:50 Nacl 0.9% IR 2,000 ml DIRECT PRN Administration IRRIGATION Tamsulosin HCl 0.8 mg 03/10/19 10:00 03/13/19 09:20 Flomax PO 0.8 mg QDAY JERAMIE Administration
--- NOTE | 2019-03-13 17:31 | Progress Note ---
Assessment and Plan - Patient Problems (1) Acute on chronic renal failure Onset Date: ~03/09/19 Current Visit: No Status: Acute Plan to address problem: Acute on chronic renal failure resolved - baseline creatinine : 2.1 in 2016 creatinine in 2019 was 2.8mg/dl per note - admitted with peak creatinine : 12mg/dl -current creatinine : 1.5mg/dl -currently on half normal saline -Received hypotonic solution given postobstructive aetiology. We'll discontinue intravenous fluids -reviewed abdominal CT - keep starkey catheter in place Continue bladder irrigation ongoing -appreciate urology evaluation. We'll sign off Thank you for the consult (2) Acidosis Current Visit: Yes Status: Acute Plan to address problem: acidosis :RESOLVED - STOP sodium bicarbonate tabs. (3) Urinary retention Current Visit: No Status: Acute Plan to address problem: urinary retention - bilateral hydroureteronephrosis - with severe BPH - keep starkey in place. - flomax 0.8mg daily. Scheduled for cystoscopy and possible transurethral resection of prostate/stent placement (4) Bilateral hydronephrosis Onset Date: ~03/09/19 Current Visit: Yes Status: Acute Plan to address problem: Bilateral hydroureteronephrosis - keep starkey in place -Appreciate urology evaluation. Status TURP procedure Subjective Principal diagnosis: Acute on chronic renal failure, jazz hyrnephrosis, UTI Interval history: 73 year old with medical history signficant for CKD stage 4, ? HTN, BPH , Hydrocele s/p recent hydrocele removal complicated by urinary retention. He reports decreased urine output. He denies any shortness of breath. he denies any fever. per chart procedure was done on 03/03 , he also had flank pain and constipation and was seen at [facility] and labs with creatinine of 2.8 , previous creatinine was 2.1 Patient seen today urine output is excellent Status post cystoscopy and stent placement and TURP Procedure He is undergoing continuous bladder irrigation still has pink tinged urine Discussed with renal function much improved Objective - Vital Signs Vital signs: Vital Signs - 12hr 03/13/19 03/13/19 03/13/19 06:17 06:20 07:20 Temperature 97.9 F Pulse Rate 67 Respiratory 20 20 20 Rate Blood Pressure Blood Pressure 150/78 [Left] O2 Sat by Pulse 98 Oximetry 03/13/19 03/13/19 03/13/19 07:37 09:20 11:35 Temperature 97.9 F Pulse Rate 70 70 67 Respiratory 18 Rate Blood Pressure 150/78 141/78 Blood Pressure [Left] O2 Sat by Pulse 99 97 Oximetry 03/13/19 03/13/19 16:52 17:00 Temperature 98.6 F Pulse Rate 61 60 Respiratory 18 Rate Blood Pressure Blood Pressure 153/75 [Left] O2 Sat by Pulse 98 Oximetry - General Appearance General appearance: well-developed, well-nourished EENT: ATNC, PERRL, mucous membranes moist Neck: no JVD Respiratory: Present: Clear to Ascultation Cardiology: regular, S1S2 Gastrointestinal: normal, normoactive bowel sounds Integumentary: no rash Neurologic: no focal deficit, CN 3-12 intact Psychiatric: mood/affect appropriate - Lab 03/13/19 04:06 03/13/19 04:06 Most recent lab results Calcium 8.5 mg/dL (8.4-10.2) 03/13/19 04:06 Phosphorus 4.60 mg/dL (2.5-4.5) H 03/10/19 06:21 Magnesium 2.60 mg/dL (1.7-2.3) H 03/10/19 06:21 - Imaging Chest x-ray: image reviewed (abdominal CT with enlarged prostate and hydronephrosis) Medications & Allergies - Medications Allergies/Adverse Reactions: Allergies No Known Allergies Allergy (Verified 03/09/19 13:49) Home Medications: Home Medications Medication Instructions Recorded Confirmed Last Taken Type Brimonidine/Timolol 0.2-0.5% 1 drops OP Q12H #30 bottle 05/16/16 03/09/19 03/03/19 Rx [Combigan 0.2-0.5%] Latanoprost 0.005% 1 drop OP QHS #30 bottle 05/16/16 03/09/19 03/03/19 Rx Aspirin EC [Aspirin Enteric Coated 81 mg PO QDAY 02/19/19 03/09/19 02/24/19 History TAB] Karina Root 550 mg PO DAILY 02/19/19 03/09/19 02/24/19 History Ibuprofen [Motrin] 800 mg PO Q8HR PRN 02/19/19 03/11/19 02/24/19 History Ranitidine HCl [Zantac] 150 mg PO PRN PRN 02/19/19 03/09/19 03/01/19 History Tamsulosin [Flomax] 0.4 mg PO QDAY 02/19/19 03/09/19 03/02/19 History Turm/Ging/Arun/Yuc/Tashi/Lawrence/Hor 1 each PO DAILY 02/19/19 03/09/19 02/24/19 History [Tumersaid Tablet] Active Medications: Generic Name Dose Route Start Last Admin Trade Name Cheli PRN Reason Stop Dose Admin Amlodipine Besylate 10 mg 03/10/19 10:00 03/13/19 09:21 Norvasc PO 10 mg QDAY JERAMIE Administration Brimonidine/Timolol 1 drops 03/13/19 12:00 03/13/19 11:59 Combigan 0.2-0.5% OS Not Given Q12H JERAMIE Famotidine 10 mg 03/09/19 21:26 03/12/19 10:51 Pepcid PO 10 mg BID PRN Administration Indigestion Ceftriaxone Sodium 1 gm in 50 mls @ 100 mls/hr 03/10/19 10:00 03/13/19 12:43 Rocephin/Ns 1 Gm/50 Ml IV 100 mls/hr Q24HR JERAMIE Administration Protocol Latanoprost 1 drops 03/09/19 23:59 03/12/19 23:59 Latanoprost 0.005% OU 1 drops QHS JERAMIE Administration Metoprolol Tartrate 50 mg 03/10/19 10:00 03/13/19 09:20 Lopressor PO 50 mg BID JERAMIE Administration Oxycodone/Acetaminophen 2 tab 03/13/19 06:13 03/13/19 12:55 Percocet 5/325 PO 2 tab Q6H PRN Administration Pain, Moderate (4-6) Sodium Chloride 2,000 ml 03/13/19 01:00 03/13/19 16:50 Nacl 0.9% IR 2,000 ml DIRECT PRN Administration IRRIGATION Tamsulosin HCl 0.8 mg 03/10/19 10:00 03/13/19 09:20 Flomax PO 0.8 mg QDAY JERAMIE Administration
[2019-03-13] MEDS: LATANOPROST 0.005% OU SCH (22:00)
[2019-03-13] MEDS ORDERED: NACL 0.9% 1,000 ML IR ONE (23:25)
[2019-03-14] MEDS: COMBIGAN 0.2-0.5% OS SCH ×2 (00:07→11:53)
[2019-03-14] MEDS: PEPCID PO PRN (03:07)
[2019-03-14 08:11] VITALS: BP 159/88
[2019-03-14 08:26] LABS: Basophils # (Auto) 0.1 K/mm3 (0.0-0.1); Basophils % (Auto) 0.9 % (0.0-1.8); Eosinophils # (Auto) 0.1 K/mm3 (0.0-0.4); Eosinophils % (Auto) 1.3 % (0.0-4.3); Hematocrit 35.6 % (35.5-45.6); Hemoglobin 11.9 gm/dl (11.8-15.2); Lymphocytes % (Auto) 10.4 % (13.4-35.0); Mean Corpuscular HGB Conc 33 % (32-34); Mean Corpuscular Volume 84 fl (84-94); Monocytes # (Auto) 0.8 K/mm3 (0.0-0.8); Monocytes % (Auto) 8.3 % (0.0-7.3); Platelet Count 329 K/mm3 (140-440); Red Blood Count 4.26 M/mm3 (3.65-5.03); Red Cell Distribution Width 15.7 % (13.2-15.2)
--- NOTE | 2019-03-14 08:37 | Progress Note ---
Subjective Date of service: 03/14/19 Principal diagnosis: Acute on chronic renal failure, jazz hyrnephrosis, UTI Interval history: 73 year old with medical history signficant for CKD stage 4, ? HTN, BPH , Hydrocele s/p recent hydrocele removal complicated by urinary retention. He reports decreased urine output. He denies any shortness of breath. he denies any fever. per chart procedure was done on 03/03 , he also had flank pain and constipation and was seen at [facility] and labs with creatinine of 2.8 , previous creatinine was 2.1 . He denies any nausea ,vomitting or diarrheoa. A CT abdomen on arrival showed bilateral hydroureteronephrosis and enlarged prostate with stone 0.6cm in left distal ureter. 03/12/19: Had CYSTO, RPG, LEFT URETEROSCOPY, BASKET STONE, STENT WITH SHORT INTERNAL STRING, TURP abd soft starkey-----pink tinged a/p stop grant ok for home today with starkey big bag/leg bag abx & pain meds on chart appt next week for starkey & stent removal Objective - Constitutional Vitals: Vital Signs - 12hr 03/13/19 03/14/19 03/14/19 22:00 00:23 04:33 Temperature 98.7 F 97.3 F L Pulse Rate 74 68 Respiratory 20 17 17 Rate Blood Pressure 160/88 131/66 O2 Sat by Pulse 97 98 Oximetry 03/14/19 07:36 Temperature 99.0 F Pulse Rate 86 Respiratory 18 Rate Blood Pressure 159/88 O2 Sat by Pulse 99 Oximetry - Labs CBC & Chem 7: 03/14/19 08:01 03/13/19 04:06 Labs: Abnormal lab results 03/14/19 Range/Units 08:01 RDW 15.7 H (13.2-15.2) % Lymph % (Auto) 10.4 L (13.4-35.0) % [place] % (Auto) 8.3 H (0.0-7.3) % Lymph # 1.0 L (1.2-5.4) K/mm3 Seg Neutrophils % 79.1 H (40.0-70.0) % Medications & Allergies - Medications Allergies/Adverse Reactions: Allergies No Known Allergies Allergy (Verified 03/09/19 13:49) Home Medications: Home Medications Medication Instructions Recorded Confirmed Last Taken Type Brimonidine/Timolol 0.2-0.5% 1 drops OP Q12H #30 bottle 05/16/16 03/09/19 03/03/19 Rx [Combigan 0.2-0.5%] Latanoprost 0.005% 1 drop OP QHS #30 bottle 05/16/16 03/09/19 03/03/19 Rx Aspirin EC [Aspirin Enteric Coated 81 mg PO QDAY 02/19/19 03/09/19 02/24/19 History TAB] Karina Root 550 mg PO DAILY 02/19/19 03/09/19 02/24/19 History Ibuprofen [Motrin] 800 mg PO Q8HR PRN 02/19/19 03/11/19 02/24/19 History Ranitidine HCl [Zantac] 150 mg PO PRN PRN 02/19/19 03/09/19 03/01/19 History Tamsulosin [Flomax] 0.4 mg PO QDAY 02/19/19 03/09/19 03/02/19 History Turm/Ging/Arun/Yuc/Tashi/Lawrence/Hor 1 each PO DAILY 02/19/19 03/09/19 02/24/19 History [Tumersaid Tablet] Active Medications: Generic Name Dose Route Start Last Admin Trade Name Cheli PRN Reason Stop Dose Admin Amlodipine Besylate 10 mg 03/10/19 10:00 03/13/19 09:21 Norvasc PO 10 mg QDAY JERAMIE Administration Brimonidine/Timolol 1 drops 03/13/19 12:00 03/14/19 00:07 Combigan 0.2-0.5% OS 1 drops Q12H JERAMIE Administration Famotidine 10 mg 03/09/19 21:26 03/14/19 03:07 Pepcid PO 10 mg BID PRN Administration Indigestion Ceftriaxone Sodium 1 gm in 50 mls @ 100 mls/hr 03/10/19 10:00 03/13/19 22:43 Rocephin/Ns 1 Gm/50 Ml IV Infused Q24HR JERAMIE Infusion Protocol Latanoprost 1 drops 03/09/19 23:59 03/13/19 22:00 Latanoprost 0.005% OU 1 drops QHS JERAMIE Administration Metoprolol Tartrate 50 mg 03/10/19 10:00 03/13/19 21:31 Lopressor PO 50 mg BID JERAMIE Administration Oxycodone/Acetaminophen 2 tab 03/13/19 06:13 03/13/19 23:25 Percocet 5/325 PO 2 tab Q6H PRN Administration Pain, Moderate (4-6) Sodium Chloride 2,000 ml 03/13/19 01:00 03/13/19 16:50 Nacl 0.9% IR 2,000 ml DIRECT PRN Administration IRRIGATION Tamsulosin HCl 0.8 mg 03/10/19 10:00 03/13/19 09:20 Flomax PO 0.8 mg QDAY JERAMIE Administration
[2019-03-14 08:40] LABS: Albumin 3.2 g/dL (3.9-5); Calcium 8.7 mg/dL (8.4-10.2)
--- NOTE | 2019-03-14 09:19 | Discharge Summary ---
Providers - Providers Date of Admission: 03/09/19 21:12 Date of discharge: 03/14/19 Attending physician: GIGI MEDINA 03/09/19 21:20 Consult to Physician [CONS] Routine Comment: called ans. serv. /jyoti Consulting Provider: INGRID LUGO Physician Instructions: Reason For Exam: Acute on chrionic renal failure 03/09/19 21:22 Consult to Physician [CONS] Routine Comment: called office/ jyoti Consulting Provider: GRACE RANGEL Physician Instructions: Reason For Exam: Urinary obstruction w/ Jazz hydronephrosis from BPH Primary care physician: GIGI MEDINA Hospitalization Reason for admission: acute on chronic renal failure, Urinary retention, abdominal pain Condition: Stable Pertinent studies: CT abdomen and pelvis Hydrouretrers and hydronephrosis with 0.6 cm none obstructing mid left ureteric stone CXR - nl EKG- SSR Procedures: Rosado catheter insetion to continuus drainage Cystoscopy with RPG, and left ureteric stent placement and TURP Hospital course: Patient is a 73 y/o male who hanson a history of chronic renal failure, BPH, 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 Severity was 5-7/10. Nonradiating. No known aggravating or relieving factors. Had no nausea or vomiting. Onset was after commencing hydrocodone given or post op pain. pain worsened for which he had to go to the ED at [facility]. Blood chemistry showed a Cr level of 2.8 with BUN of 19. Base line creatinine was 2.1 as of 04/2016. He was discharged with a diagnosis of constipation and placed on stool softners. He followed up with me on the office on 03/06/19 and was given a referral to follow up with his Advertiser. His right sided abdominal pain continue with decreased urine output for which he presented to the [facility]19. Blood chemistry showed a cratinine level of 12.9 and BUN of [address]. CT abdomen and pelvis showed jazz hydroureteronephrosis with a enlarged prostate and left mid non obstructing 0.6 cm urteric stone. Patient denies any fever, N/V, chest pain, or shortness of breath. Denies any hematuria. Indewelling Rosado with continuous drainage inserted. 500 ml of urine drained immediately. Nephrology and Urology consulted. IV hydration with D5NS commence. Creatinine improved from 12.9 to 1.5. Had episode of elevated BP for which he was commence on antihypertensives. BP contolled. Had UTI on admission for which urine culture was obtained and commence Rocephin. Culture report was negative after 3 days. On 03/12/19: Had CYSTO, RPG, LEFT URETEROSCOPY, BASKET STONE, STENT WITH SHORT INTERNAL STRING, TURP and grant's drip commence. Urine Clearing out today and was recommended to be discharged by Urologists who wrote his antibiotics on discharge. Patient it therefore being discharged home today with home health as he lives alone. He is to f/u with me in 3 days and Urologist in 5-7 days. Disposition: [id number] HOME UNDER HOME HLTH - Discharge Diagnoses (1) Bilateral hydronephrosis Status: Acute (2) Left ureteral stone Status: Acute (3) Acute on chronic renal failure Status: Acute (4) Bilateral hydrocele Status: Acute (5) UTI (urinary tract infection) Status: Acute (6) BPH with obstruction/lower urinary tract symptoms Status: Acute (7) DVT prophylaxis Status: Acute (8) Irritable bowel syndrome with constipation Status: Acute Core Measure Documentation - Palliative Care Palliative Care/ Comfort Measures: Not Applicable - Core Measures Any of the following diagnoses?: none Exam - Physical Exam Narrative exam: Constitutional: Well-nourished well-developed. In no distress Head: Normocephalic atraumatic Eyes: Pupils are equal round and reactive to light Nose: No enlarged turbinates, no septal deviation. Mouth: Moist mucous membranes. Neck: Supple no thyromegaly. No bruit. No JVD Heart: Regular rate and rhythm, S1-S2 normal. No rubs murmurs or gallop Lungs: Clear to auscultation bilaterally. no rales or rhonchi Abdomen: Soft, nontender. Bowel sound are present. Extremities: No edema, no cyanosis, no clubbing. Neuro: Alert oriented Oriented x3. No focal sensory or motor deficit. Skin: No rashes or hyperpigmented spots Musculoskeletal system: No joint pain or swelling Hematological: No petechia or subcutanous hemorrhages. Immunological: No multiple septic spots on the skin AMELIA: Indwelling Foleys on continuos drainage. S/p TURP. Healing scrotal incision with drain in place. Lymphatic: No generalized lymphadenopathy Psychiatry: Euthymic. Calm. - Constitutional Vitals: Temp Pulse Resp BP Pulse Ox 99.0 F 86 18 159/88 99 03/14/19 07:36 03/14/19 07:36 03/14/19 07:36 03/14/19 07:36 03/14/19 07:36 Plan Activity: advance as tolerated, fall precautions Weight Bearing Status: Non-Weight Bearing Diet: low salt Follow up with: GIGI MEDINA MD [Primary Care Provider] - 3-5 Days Prescriptions: Acetaminophen [Acetaminophen ER TAB] 650 mg PO Q8HR PRN #60 tablet.er PRN Reason: Pain amLODIPine [Norvasc] 10 mg PO QDAY #30 tablet
[2019-03-14] MEDS: NORVASC PO SCH (09:24)
[2019-03-14] MEDS: FLOMAX PO SCH (09:25)
[2019-03-14] MEDS: LOPRESSOR PO SCH (09:25)
[2019-03-14] MEDS: ROCEPHIN/NS 1 GM/50 ML 1 GM/50 ML BAG IV SCH (09:26)
== END 2019-03-14 18:45 | disposition home health service (06) | DRG 713 ==
LOC: ED 13:04 → 2B-ACE 21:12 → 3B-SURG 03-12 22:26
PROVIDERS: ADMIT Family Medicine; ATTEND Family Medicine
PROC: BT141ZZ Fluoroscopy of Kidneys, Ureters and Bladder using Low Osmolar Contrast (ICD-10-PCS; principal; 2019-03-12)
PROC: 0T778DZ Dilation of Left Ureter with Intraluminal Device, Via Natural or Artificial Opening Endoscopic (ICD-10-PCS; 2019-03-12)
PROC: 0TC78ZZ Extirpation of Matter from Left Ureter, Via Natural or Artificial Opening Endoscopic (ICD-10-PCS; 2019-03-12)
PROC: 0VT08ZZ Resection of Prostate, Via Natural or Artificial Opening Endoscopic (ICD-10-PCS; 2019-03-12)
DX: N40.1 Benign prostatic hyperplasia with lower urinary tract symptoms (principal); N13.2 Hydronephrosis with renal and ureteral calculous obstruction; E87.2 Acidosis; N39.0 Urinary tract infection, site not specified; N17.9 Acute kidney failure, unspecified; R33.8 Other retention of urine; N13.9 Obstructive and reflux uropathy, unspecified; N43.3 Hydrocele, unspecified; N18.9 Chronic kidney disease, unspecified; I12.9 Hypertensive chronic kidney disease with stage 1 through stage 4 chronic kidney disease, or unspecified chronic kidney disease; K58.1 Irritable bowel syndrome with constipation; K21.9 Gastro-esophageal reflux disease without esophagitis; M19.90 Unspecified osteoarthritis, unspecified site; E83.39 Other disorders of phosphorus metabolism; D63.8 Anemia in other chronic diseases classified elsewhere; Z79.899 Other long term (current) drug therapy; Z79.82 Long term (current) use of aspirin
CPT/HCPCS: 36415; 51702; 71045; 74176; 74420; 80048; 80053; 81001; 82140; 82607; 82747; 83550; 83690; 83735; 84100; 84154; 85007; 85025; 87040; 87086; 88305; 93005; 93010; 96360; 96361; G0378; A4217; C1726; C1758; C1769; C2617; J0696; J1170; J1650; J2405; J2704; J3010; J7030; Q9967